=== PATIENT | female | born 1955 | race Native Hawaiian/Other Pacific Islander ===

== ENCOUNTER 2024-07-13 14:42 | Outpatient (AMB) | payer OTHER, SELFPAY ==
--- NOTE | 2024-07-13 15:04 | MHC.OFFVIS ---
Vital Signs 07/13/24 15:05 Height 5 ft 2.5 in Weight 200 lb 9.93 oz BMI 36.1 BP 132/80 Blood Pressure Location Rt brachial Position Sitting Pulse 88 Pulse Source Pulse Oximeter Pulse Oximetry (%) 95 Oxygen Delivery Method Room Air Intake Visit Reasons: asthma Allergies Latex, Natural Rubber [LATEX, NATURAL RUBBER] Allergy (Unknown, Unverified 07/13/24 15:08) RASH sulfamethoxazole [From BACTRIM] Allergy (Unknown, Unverified 07/13/24 15:08) RASH trimethoprim [From BACTRIM] Allergy (Unknown, Unverified 07/13/24 15:08) RASH HPI Comments Details: The patient is here for pulmonary evaluation. The patient is a 69 year woman with known history of asthma. She has had asthma and she has a child in his symptoms improve. Now for the last few years been having worsening respiratory symptoms such as tightness. She has had admissions at [facility] for asthma exacerbations. Although has not had any admissions for the last 3 years. The patient has been taking Symbicort. She feels she has does significant chest tightness and shortness of breath. She uses a rescue inhaler on a regular basis. She has had allergy testing in the past. And she was also diagnosed with nasal polyps. She was not offered allergy shots and she did go to ENT doctor. She did have surgery for her nose. The last time she was evaluated they did not see any nasal polyps which is reassuring. The patient also suffers from significant reflux disease. Sometimes she does wake up with significant heartburn and coughing because of reflux. She does take Protonix. Although she continues to be symptomatic. The patient does not use aspirin at this time. She does have chest tightness on examination wheezing. Will go ahead and optimize respiratory therapy. Will go ahead and request PFTs and a chest x-ray and have her come in. She is already on lot of medications. So therefore we have to be careful not to add to her polypharmacy. [facility] Medical History (Updated 07/13/24 @ 23:12 by Albino Wolff MD) Nasal polyps Asthma Social History (Updated 07/13/24 @ 15:09 by Gabby Ramos CMA) Patient Tobacco Use Status: Former Tobacco user Review of Systems Const Reports daytime sleepiness and Reports snoring Eyes Reports no additional complaints ENT Reports nasal congestion and Reports nasal discharge Card Denies chest pain Resp Reports cough, Reports snoring and Reports wheezing GI Reports dyspepsia and Reports heartburn Musc Reports no additional complaints Skin/Breast Denies rash Cosmo/Lymph Reports no additional complaints Aller/Immun Reports wheezing Physical Exam Vital Signs: Last Vital Signs Pulse 88 07/13/24 15:05 BP 132/80 07/13/24 15:05 Pulse Ox 95 07/13/24 15:05 Oxygen Delivery Method Room Air 07/13/24 15:05 BMI result Body Mass Index 36.1 Const General: comfortable HEENT Head: Yes normocephalic Neck Neck: Yes supple Chest Chest palpation & inspection: normal inspection of the chest Resp Effort & Inspection: normal respiratory effort Auscultation: wheezes and diminished lung sounds Cardio Heart sounds: S1 normal heart sound present and S2 normal heart sound present GI Palpation (GI): Soft to palpation Skin General skin exam: no rashes or lesions noted Extrem General: No clubbing, No cyanosis and Yes edema Assessment & Plan Assessment & Plan (1) Asthma: Code(s): J45.909 - Unspecified asthma, uncomplicated Category: Medical Qualifiers: Asthma severity: moderate Asthma persistence: persistent Asthma complication type: uncomplicated Qualified Code(s): J45.40 - Moderate persistent asthma, uncomplicated (2) ASTRID (obstructive sleep apnea): Code(s): G47.33 - Obstructive sleep apnea (adult) (pediatric) Category: Medical (3) Nasal polyps: Code(s): J33.9 - Nasal polyp, unspecified Category: Medical Plan continue Symbicort start Spiriva JAY as needed reflux diet PPI start H2B sleep elevated CXR PFTs consider PSG F/U 2 months Orders: Orders XR chest 2V Today J45.909 - Unspecified asthma, uncomplicated PFT pulmonary function test Today J45.909 - Unspecified asthma, uncomplicated Medications: New tiotropium bromide 2.5 mcg/actuation (Spiriva Respimat) 2 puffs inhalation DAILY 1 ea 11RF 30 days famotidine (Pepcid) 40 mg PO BEDTIME 30 tabs 4RF Coding Level of Care Code New Pt Level 4 (79000) Diagnoses Moderate persistent asthma without complication J45.40 Asthma severity: moderate Asthma persistence: persistent Asthma complication type: uncomplicated ASTRID (obstructive sleep apnea) G47.33 Nasal polyps J33.9 Time Spent (min) 40
[2024-07-13 15:05] VITALS: BP 132/80; PULSE 88; O2SAT 95; BMI 36.1
--- OUTSIDE RECORDS SUMMARY | 2024-07-13 16:53 | XMS_ITS ---
Author Organization [facility] Address [address] [place] [address] Care Team Providers Care District Director Name Role Phone RICCARDO PHILLIPS Unavailable [phone] Encounters Encounter Location Date Provider Diagnosis [facility] [address] [place] [address] 02/06/2023 RICCARDO PHILLIPS PLAN OF TREATMENT No Information Progress Notes * Katherine OGDENDOB:1955 (67 yo F)Acc No.[id number]:02/06/2023 Patient:??Katherine Ogden :1955?Age:67 Y?Sex:Fe male Address:[address] [place] [address] [place] [id number] * true * Date:??
--- OUTSIDE RECORDS SUMMARY | 2024-07-13 16:53 | XMS_ITS ---
Author Organization [facility] Address [address] [place] [address] Care Team Providers [employer] It Business Systems Analyst Name Role Phone RICCARDO PHILLIPS Unavailable [phone] Encounters Encounter Location Date Provider Diagnosis [address] [facility] [address] [place] [address] 02/07/2023 RICCARDO PHILLIPS Overweight E66.3 and BMI 29.0-29.9,adult Z68.29 ASSESSMENTS Encounter Date Diagnosis Assessment Notes Treatment Notes Treatment Clinical Notes Section Notes 02/07/2023 Overweight (ICD-10 - E66.3) Total time spent today was 30 minutes of which greater than 50% was spent on coordinating and counseling Patient is happy with the ozempic 2 mg. She has not had any side effects with medication. She would like to continue on this dose until she reaches her goal weigh of 165-170 pounds. We are a board certified obesity and weight management practice Patient has trialed behavioral modification, dietary restrictions and exercise for a minimum of 3 months Patient counseled regarding effects of GLP/GIP-1 agonists, and other FDA approved wgt loss meds with regards to a multifactorial approach of weight loss as mentioned above and not solely appetite suppression. We have discussed the mechanism of GLP-1's/GIP I think this would be fantastic option for her given her metabolic workup and body composition We have discussed the risks and benefits and side effects including/and not limited to Sarcopenia, intestinal obstruction, constipation, nausea, lethargy, headache There is no history of medullary thyroid cancer or multiple endocrine neoplasia There is also no history of cardiovascular disease, hypertension, palpitations, or arrhythmias In the setting of potential stimulant/amphetam ine use such as phentermine Patient has been found to be obese with a BMI of (). Patient has class () obesity. Patient was reassured and welcomed to the practice. We discussed that we stress a hollistic medical approach with emphasis on lifestyle modification. Patient was informed that a healthy lifestyle with exercise and good eating habits can help reduce his risk of medical complications. He is explained that obesity increases his risk of diabetes, cardiovascular disease, or organ damage. We spent a lot of time discussing the relationship between food, exercise, sleep, mental health and obesity. Patient was counseled on the importance EATING local, organic food when possible. Patient was educated on clean 15 and dirty dozen. I provided information about reading books called The Food Rules by Rafi Rabago and Eat Fat Get Lean by Dr Eric Cain. Self education is important in the journey for weight management. Patient was offered diagnostic testing. We want to measure visceral adiposity, advanced body composition, adverse lipids, fatty acid balance, risk for heart disease and atherosclerosis, markers of inflammation and genetic susceptibility. Patient was counseled on weight management and was advised to lose weight using A. Meal Replacement Products Patient was educated on the replacement products called optifast. This is a good way of taking fixed amount of calories. It has been shown in studies to be ineffective weight management tool. This however has to be coupled with lifestyle intervention as well as laboratory data and EKG monitoring. It is impossible to know how a person will tolerate complete meal replacement. The side effects of meal replacement and weight loss could include syncopal attacks, dizziness, gallstones, potential cholecystectomy, possible heart attack and even . The benefits of meal replacement would be potential weight loss but no guarantees can be made. Meal replacement products are not covered by insurance. Once the patient has bought these products we cannot return them B. Lifestyle management which includes several strategies as below 1. Eat a low carbohydrate good fat good protein diet. Eliminate refined carbohydrates from the diet. Continue blood sugar and sugared beverages. Eat local organic when possible. Cook your own meals. Read food labels. None about healthy snacks. Portion control and food with low glycemic index 2. Exercise regularly. Try to get at least 6000 steps a day. Use a predominant to track activity level. Consider using apps like [employer], Pinchdpal, lose it, stick as needed for self-monitoring and weight management. Consider group exercises. Consider hiring a household personal assistant. Regular exercise is carrasco to sustainable health and prevents as a buffer against weight regain 3. Sleep is most important for healing. Tried to sleep at least 8 hours a night. A good quality sleep needs a sleep ritual with ideal room temperature of around 68. It might help to take a shower and have no electronics in the room and sleep in a very dark room without artificial light. Start her sleep routine and get up early in the morning and go to bed on time 4. Make a social connection. Surround yourself with positive people with positive energy. Connect with friends and family. 5. Get into the habit of meditating and mindfulness while doing everything. 6. Go outside and connect with nature. C. Prescription medications Patient was educated on the use of prescription medications for medical weight loss. This is a growing list and includes phentermine, Topamax,Qsymia, contrave, belviq and saxenda. All prescription medications could have side effects including but not limited to kidney stones, seizure disorder cardiac arrhythmias heart attack pancreatitis etc. etc.. Patient was encouraged to read the prescription insert and have coaching with their pharmacist and make an informed decision about taking medication and know that these medications are being prescribed with good intentions and we do not know how a patient would react to her medication. Sudden medications are FDA approved for weight loss and there is also off label use depending on patient's inability to afford medications in an attempt to lose weight D. Behavioral counseling was done to establish a relationship between food and an mood. Patient was provided information about local counseling and psychiatry and Dr Uribe at [facility]. We would like to cover regular topics and build on low glycemic eating exercise mindful eating, using yoga and meditation along with deep breathing and connecting with friends and family. E. MASS PAT reviewed, Patient's current medications were reviewed and opinion was given on medication that can cause weight gain and can be substituted F. Patient was assessed for risk with obesity including and not limiting to atherosclerosis heart disease stroke kidney disease, restrictive lung disease, irritable bowel syndrome and overall mortality. Risk of developing prediabetes diabetes and metabolic syndrome was discussed G. Therapeutic plan: We have decided to make therapeutic plan which would include choosing wisely on calories restricting portion getting active, tracking weight, getting good quality sleep and working on time management H. Patient will follow up in (4) weeks for weight management Of note, some information is being carried forward from prior records for informational purposes only and is being cited so that efficiency, safety and quality of the patient's care is not compromised This note was prepared using voice recognition software and direct typing Please excuse inadvertent product development actuary or typing errors, or uncorrected word substitutions Although every attempt has been made by the provider to proofread this document, occasional misspellings and typographical errors may still be present Due to the previous pandemic, and the use of personal protective equipment (PPE) This may decrease voice recognition accuracy Inadvertent product development actuary errors may occur 02/07/2023 BMI 29.0-29.9,adul t (ICD-10 - Z68.29) Total time spent today was 30 minutes of which greater than 50% was spent on coordinating and counseling Patient is happy with the ozempic 2 mg. She has not had any side effects with medication. She would like to continue on this dose until she reaches her goal weigh of 165-170 pounds. We are a board certified obesity and weight management practice Patient has trialed behavioral modification, dietary restrictions and exercise for a minimum of 3 months Patient counseled regarding effects of GLP/GIP-1 agonists, and other FDA approved wgt loss meds with regards to a multifactorial approach of weight loss as mentioned above and not solely appetite suppression. We have discussed the mechanism of GLP-1's/GIP I think this would be fantastic option for her given her metabolic workup and body composition We have discussed the risks and benefits and side effects including/and not limited to Sarcopenia, intestinal obstruction, constipation, nausea, lethargy, headache There is no history of medullary thyroid cancer or multiple endocrine neoplasia There is also no history of cardiovascular disease, hypertension, palpitations, or arrhythmias In the setting of potential stimulant/amphetam ine use such as phentermine Patient has been found to be obese with a BMI of (). Patient has class () obesity. Patient was reassured and welcomed to the practice. We discussed that we stress a hollistic medical approach with emphasis on lifestyle modification. Patient was informed that a healthy lifestyle with exercise and good eating habits can help reduce his risk of medical complications. He is explained that obesity increases his risk of diabetes, cardiovascular disease, or organ damage. We spent a lot of time discussing the relationship between food, exercise, sleep, mental health and obesity. Patient was counseled on the importance EATING local, organic food when possible. Patient was educated on clean 15 and dirty dozen. I provided information about reading books called The Food Rules by Rafi Rabago and Eat Fat Get Lean by Dr Eric Cain. Self education is important in the journey for weight management. Patient was offered diagnostic testing. We want to measure visceral adiposity, advanced body composition, adverse lipids, fatty acid balance, risk for heart disease and atherosclerosis, markers of inflammation and genetic susceptibility. Patient was counseled on weight management and was advised to lose weight using A. Meal Replacement Products Patient was educated on the replacement products called optifast. This is a good way of taking fixed amount of calories. It has been shown in studies to be ineffective weight management tool. This however has to be coupled with lifestyle intervention as well as laboratory data and EKG monitoring. It is impossible to know how a person will tolerate complete meal replacement. The side effects of meal replacement and weight loss could include syncopal attacks, dizziness, gallstones, potential cholecystectomy, possible heart attack and even . The benefits of meal replacement would be potential weight loss but no guarantees can be made. Meal replacement products are not covered by insurance. Once the patient has bought these products we cannot return them B. Lifestyle management which includes several strategies as below 1. Eat a low carbohydrate good fat good protein diet. Eliminate refined carbohydrates from the diet. Continue blood sugar and sugared beverages. Eat local organic when possible. Cook your own meals. Read food labels. None about healthy snacks. Portion control and food with low glycemic index 2. Exercise regularly. Try to get at least 6000 steps a day. Use a predominant to track activity level. Consider using apps like [employer], Pinchdpal, lose it, stick as needed for self-monitoring and weight management. Consider group exercises. Consider hiring a household personal assistant. Regular exercise is carrasco to sustainable health and prevents as a buffer against weight regain 3. Sleep is most important for healing. Tried to sleep at least 8 hours a night. A good quality sleep needs a sleep ritual with ideal room temperature of around 68. It might help to take a shower and have no electronics in the room and sleep in a very dark room without artificial light. Start her sleep routine and get up early in the morning and go to bed on time 4. Make a social connection. Surround yourself with positive people with positive energy. Connect with friends and family. 5. Get into the habit of meditating and mindfulness while doing everything. 6. Go outside and connect with nature. C. Prescription medications Patient was educated on the use of prescription medications for medical weight loss. This is a growing list and includes phentermine, Topamax,Qsymia, contrave, belviq and saxenda. All prescription medications could have side effects including but not limited to kidney stones, seizure disorder cardiac arrhythmias heart attack pancreatitis etc. etc.. Patient was encouraged to read the prescription insert and have coaching with their pharmacist and make an informed decision about taking medication and know that these medications are being prescribed with good intentions and we do not know how a patient would react to her medication. Sudden medications are FDA approved for weight loss and there is also off label use depending on patient's inability to afford medications in an attempt to lose weight D. Behavioral counseling was done to establish a relationship between food and an mood. Patient was provided information about local counseling and psychiatry and Dr Uribe at [facility]. We would like to cover regular topics and build on low glycemic eating exercise mindful eating, using yoga and meditation along with deep breathing and connecting with friends and family. E. MASS PAT reviewed, Patient's current medications were reviewed and opinion was given on medication that can cause weight gain and can be substituted F. Patient was assessed for risk with obesity including and not limiting to atherosclerosis heart disease stroke kidney disease, restrictive lung disease, irritable bowel syndrome and overall mortality. Risk of developing prediabetes diabetes and metabolic syndrome was discussed G. Therapeutic plan: We have decided to make therapeutic plan which would include choosing wisely on calories restricting portion getting active, tracking weight, getting good quality sleep and working on time management H. Patient will follow up in (4) weeks for weight management Of note, some information is being carried forward from prior records for informational purposes only and is being cited so that efficiency, safety and quality of the patient's care is not compromised This note was prepared using voice recognition software and direct typing Please excuse inadvertent product development actuary or typing errors, or uncorrected word substitutions Although every attempt has been made by the provider to proofread this document, occasional misspellings and typographical errors may still be present Due to the previous pandemic, and the use of personal protective equipment (PPE) This may decrease voice recognition accuracy Inadvertent product development actuary errors may occur PLAN OF TREATMENT No Information Progress Notes * Andrea OGDEN:1955 (69 yo F)Acc No.[id number]:02/07/2023 Patient:??Katherine OGDEN Provider:??RICCARDO PHILLIPS NP :[id number]?Age:67 Y?Sex:Fe male Date:02/07/2023 Address:[address] [place] [address] Subjective: * Chief Complaints: * ? * HPI: ?Constitutional:? Patient is here today for a weight management f/u visit ?Patient seen and examined. ? Full past medical history, social history, family history, ?allergies and current medications were reviewed and updated. ?Body composition analysis reviewed today, as expected increased BMI, ?visceral adiposity, fat mass index, waist cirumference ?Good skeletal mass composition, Good water composition ?Caloric energy expenditure discussed ?Patient is interested in increasing her dose to 2mg. ?injection day: ?she is no longer having acid reflux symptoms. happy with her weight loss so far ?and no longer wants bariatric surgery. ?Is having left shoulder surgery in 1 month, 10/19, [facility] ? pt reports walking dog 4 times a day. ?has been working on diet but still reporting snacking. ?02/07/2023: weight ?12/27/2022: weight 162 pounds, BMI 28 ?11/15/2022, weight 166 pounds, BMI 29 ?10/04/2022: Weight 171lbs, BMI 30, (-1lbs) ?08/16/2022: Weight 172, BMI 30 (-8lbs) ?07/05/2022: Weight 180lbs, BMI 32 (-3lbs) ?06/05/2022: Weight 183lbs, unchanged ?05/02/2022: Weight 185 lbs, BMI 32: ?Patient referred to us from bariatric surgeon Shawn ?Highest weight: 198 lbs ?Lowest weight: 150-160 lbs ?Goal weight: 165-170 lbs ?ASTRID screening, refused. ?Metabolic workup: ?Thyroid, does not recall ?Diabetes, does not recall ?Has not had an echocardiogram recently. ?does give herself monthly injections for her psoriasis ?Diet: not tracking calories or portion controlling ?Exercise: Currently not tracking steps daily. ?Non-smoker. ?ETOH use:. * ROS:?All Other Systems:?Review of Systems (ROS)??All others negative except those mentioned in HPI.? * Medical History:?? Objective: * Examination: ?General Examination: ?General: Well appearing, well nourished, age appropriate in no acute distress. Speaking in full, clear sentences. ?SKIN: Warm, dry intact. No rashes/lesions. Cap refill < 3 seconds ?HEENT: Normocephalic atraumatic. EOM intact. No nystagmus noted. PERRLA. No maxillary sinus tenderness. ?NECK: Supple without lymphadenopathy ?LUNGS: Clear to auscultation bilaterally, no wheezes, rales or rhonchi ?CARDIAC: Regular rate and rhythm, no murmurs, rubs or gallops. ?Abdomen: Soft, nontender, nondistended. No tenderness if all 4 quadrants. Normoactive bowel sounds. No masses palpable. ?Extremities: Warm and well perfused. No edema noted. ?MSK: Ms Access Database Developer strength 5/5. No paraspinous muscle tenderness noted down the spine. No step off deformities. Bilateral lower extremitoes extension 5/5. ?Neuro: CN II-XI grossly intact. Speaking in full sentences. Hearing intact. Assessment: * Assessment: 1.??Overweight - E66.3??2.?? BMI 29.0-29.9,adult - Z68.29?? Total time spent today was 3 0 minutes of which greater than 50% was spent on coordinating and counseling Patient is happy with the ozempic 2 mg. She has not had any side effects with medication. She would like to continue on this dose until she reaches her goal weigh of 165- 170 pounds. We are a board certified obesity and weight management practice Patient has trialed behavioral modification, dietary restrictions and exercise for a minimum of 3 months Patient counseled regarding effects of GLP/GIP-1 agonists, and other FDA approved wgt loss meds with regards to a multifactorial approach of weight loss as mentioned above and not solely appetite suppression. We have discussed the mechanism of GLP-1's/GIP I think this would be fantastic option for her given her metabolic workup and body composition We have discussed the risks and benefits and side effects including/and not limited to Sarcopenia, intestinal obstruction, constipation, nausea, lethargy, headache There is no history of medullary thyroid cancer or multiple endocrine neoplasia There is also no history of cardiovascular disease, hypertension, palpitations, or arrhythmias In the setting of potential stimulant/amphetamine use such as phentermine Patient has been found to be obese with a BMI of (). Patient has class () obesity. Patient was reassured and welcomed to the practice. We discussed that we stress a hollistic medical approach with emphasis on lifestyle modification. Patient was informed that a healthy lifestyle with exercise and good eating habits can help reduce his risk of medical complications. He is explained that obesity increases his risk of diabetes, cardiovascular disease, or organ damage. We spent a lot of time discussing the relationship between food, exercise, sleep, mental health and obesity. Patient was counseled on the importance EATING local, organic food when possible. Patient was educated on clean 15 and dirty dozen. I provided information about reading books called The Food Rules by Rafi Rabago and Eat Fat Get Lean by Dr Eric Cain. Self education is important in the journey for weight management. Patient was offered diagnostic testing. We want to measure visceral adiposity, advanced body composition, adverse lipids, fatty acid balance, risk for heart disease and atherosclerosis, markers of inflammation and genetic susceptibility. Patient was counseled on weight management and was advised to lose weight using A. Meal Replacement Products Patient was educated on the replacement products called optifast. This is a good way of taking fixed amount of calories. It has been shown in studies to be ineffective weight management tool. This however has to be coupled with lifestyle intervention as well as laboratory data and EKG monitoring. It is impossible to know how a person will tolerate complete meal replacement. The side effects of meal replacement and weight loss could include syncopal attacks, dizziness, gallstones, potential cholecystectomy, possible heart attack and even . The benefits of meal replacement would be potential weight loss but no guarantees can be made. Meal replacement products are not covered by insurance. Once the patient has bought these products we cannot return them B. Lifestyle management which includes several strategies as below 1. Eat a low carbohydrate good fat good protein diet. Eliminate refined carbohydrates from the diet. Continue blood sugar and sugared beverages. Eat local organic when possible. Cook your own meals. Read food labels. None about healthy snacks. Portion control and food with low glycemic index 2. Exercise regularly. Try to get at least 6000 steps a day. Use a predominant to track activity level. Consider using apps like [employer], [employer], lose it, stick as needed for self-monitoring and weight management. Consider group exercises. Consider hiring a household personal assistant. Regular exercise is carrasco to sustainable health and prevents as a buffer against weight regain 3. Sleep is most important for healing. Tried to sleep at least 8 hours a night. A good quality sleep needs a sleep ritual with ideal room temperature of around 68. It might help to take a shower and have no electronics in the room and sleep in a very dark room without artificial light. Start her sleep routine and get up early in the morning and go to bed on time 4. Make a social connection. Surround yourself with positive people with positive energy. Connect with friends and family. 5. Get into the habit of meditating and mindfulness while doing everything. 6. Go outside and connect with nature. C. Prescription medications Patient was educated on the use of prescription medications for medical weight loss. This is a growing list and includes phentermine, Topamax,Qsymia, contrave, belviq and saxenda. All prescription medications could have side effects including but not limited to kidney stones, seizure disorder cardiac arrhythmias heart attack pancreatitis etc. etc.. Patient was encouraged to read the prescription insert and have coaching with their pharmacist and make an informed decision about taking medication and know that these medications are being prescribed with good intentions and we do not know how a patient would react to her medication. Sudden medications are FDA approved for weight loss and there is also off label use depending on patient's inability to afford medications in an attempt to lose weight D. Behavioral counseling was done to establish a relationship between food and an mood. Patient was provided information about local counseling and psychiatry and Dr Uribe at [facility]. We would like to cover regular topics and build on low glycemic eating exercise mindful eating, using yoga and meditation along with deep breathing and connecting with friends and family. E. MASS PAT reviewed, Patient's current medications were reviewed and opinion was given on medication that can cause weight gain and can be substituted F. Patient was assessed for risk with obesity including and not limiting to atherosclerosis heart disease stroke kidney disease, restrictive lung disease, irritable bowel syndrome and overall mortality. Risk of developing prediabetes diabetes and metabolic syndrome was discussed G. Therapeutic plan: We have decided to make therapeutic plan which would include choosing wisely on calories restricting portion getting active, tracking weight, getting good quality sleep and working on time management H. Patient will follow up in (4) weeks for weight management Of note, some information is being carried forward from prior records for informational purposes only and is being cited so that efficiency, safety and quality of the patient's care is not compromised This note was prepared using voice recognition software and direct typing Please excuse inadvertent product development actuary or typing errors, or uncorrected word substitutions Although every attempt has been made by the provider to proofread this document, occasional misspellings and typographical errors may still be present Due to the previous pandemic, and the use of personal protective equipment (PPE) This may decrease voice recognition accuracy Inadvertent product development actuary errors may occur. Plan: * Treatment: * Images: Billing Information: * Visit Code:?? * Procedure Codes:?? * Sign off status: Pending * Provider:??RICCARDO PHILLIPS NP Date:??09/2022 History and Physical Notes * HPI (History of Present Illness) Category Sub-Category Detail Notes Category Not es Constitutional Patient is here today for a weight management f/u visit Patient seen and examined. Full past medical history, social history, family history, allergies and current medications were reviewed and updated. Body composition analysis reviewed today, as expected increased BMI, visceral adiposity, fat mass index, waist cirumference Good skeletal mass composition, Good water composition Caloric energy expenditure discussed Patient is interested in increasing her dose to 2mg. injection day: she is no longer having acid reflux symptoms. happy with her weight loss so far and no longer wants bariatric surgery. Is having left shoulder surgery in 1 month, 10/19, Shadi FLORES pt reports walking dog 4 times a day. has been working on diet but still reporting snacking. 02/07/2023: weight 12/27/2022: weight 162 pounds, BMI 28 11/15/2022, weight 166 pounds, BMI 29 10/04/2022: Weight 171lbs, BMI 30, (-1lbs) 08/16/2022: Weight 172, BMI 30 (-8lbs) 07/05/2022: Weight 180lbs, BMI 32 (-3lbs) 06/05/2022: Weight 183lbs, unchanged 05/02/2022: Weight 185 lbs, BMI 32: Patient referred to us from bariatric surgeon Shawn Highest weight: 198 lbs Lowest weight: 150-160 lbs Goal weight: 165-170 lbs ASTRID screening, refused. Metabolic workup: Thyroid, does not recall Diabetes, does not recall Has not had an echocardiogram recently. does give herself monthly injections for her psoriasis Diet: not tracking calories or portion controlling Exercise: Currently not tracking steps daily. Non-smoker. ETOH use: Examination Category Sub-Category Detail Notes Category Not es General Examination General: Well appearing, well nourished, age appropriate in no acute distress. Speaking in full, clear sentences. SKIN: Warm, dry intact. No rashes/lesions. Cap refill < 3 seconds HEENT: Normocephalic atraumatic. EOM intact. No nystagmus noted. PERRLA. No maxillary sinus tenderness. NECK: Supple without lymphadenopathy LUNGS: Clear to auscultation bilaterally, no wheezes, rales or rhonchi CARDIAC: Regular rate and rhythm, no murmurs, rubs or gallops. Abdomen: Soft, nontender, nondistended. No tenderness if all 4 quadrants. Normoactive bowel sounds. No masses palpable. Extremities: Warm and well perfused. No edema noted. MSK: Ms Access Database Developer strength 5/5. No paraspinous muscle tenderness noted down the spine. No step off deformities. Bilateral lower extremitoes extension 5/5. Neuro: CN II-XI grossly intact. Speaking in full sentences. Hearing intact.
--- OUTSIDE RECORDS SUMMARY | 2024-07-13 16:54 | XMS_ITS | Patient Health Record ---
Author Organization [facility] Address [address] [place] [address] Care Team Providers Care Counter Intelligence Technician Name Role Phone RICCARDO PHILLIPS Unavailable [phone] ALLERGIES Allergen (clinical drug ingredient) Drug/Non Drug Allergy documented on EMR Reaction Allergy Type Onset Date Status sulfamethoxazole / trimethoprim Bactrim rash Drug Allergy Active Latex Latex rash Allergy Active REASON FOR REFERRAL No Information MEDICATIONS Medication SIG (Take, Route, Frequency, Duration) Notes Start Date End Date Status Budesonide-Formoterol Fumarate 160-4.5 MCG/ACT INHALE 2 PUFFS BY MOUTH TWICE DAILY. RINSE MOUTH AND THROAT AFTER USE Inhalation for 30 Active Fluocinonide 0.05 % APPLY TO LEGS TWICE A DAY NEEDED FOR FLARES External for 30 Active busPIRone HCl 5 MG TAKE 1 TABLET BY JOSE ROBERTO TH TWICE A DAY FOR ANXIETY Oral for 30 Active Ozempic (2 MG/DOSE) 8 MG/3ML inject 2mg Subcutaneous once a week for 30 days Active aMILoride HCl 5 MG TAKE 1 TABLET BY JOSE ROBERTO TH EVERY DAY Oral for 90 Active NIFEdipine ER 30 MG TAKE 1 TABLET BY JOSE ROBERTO TH EVERY DAY Oral for 90 Active Atorvastatin Calcium 10 MG TAKE 1 TABLET BY MOUTH EVERYDAY AT BEDTIME Oral for 90 Active Pantoprazole Sodium 40 MG TAKE 1 TABLET BY MOUTH EVERY DAY Oral for 90 Active SOCIAL HISTORY Tobacco Use: Social History Observation Description Date Details (start date - stop date) Never Smoker NA - NA Sex Assigned At : Social History Observation Description Sex Assigned At Unknown Tobacco Use/Smoking Question Answer Notes Are you a nonsmoker Alcohol Screen (Audit-C) Question Answer Notes Did you have a drink contain ing alcohol in the past year? Yes How often did you have a dri nk containing alcohol in the past year? Monthly or less (1 point) Points 1 Interpretation Negative PROBLEMS Problem Type ICD Code Onset Dates Problem Status W/U Status Risk SNOMED Code Notes Problem Essential (primary) hypertension (I10) Active confirmed 03234919 Problem Obesity (BMI 30.0-34.9) (E66.9) Active confirmed 221691849611670 Problem Gastroesophageal reflux disease without esophagitis (K21.9) Active confirmed 833883645 Problem Current mild episode of major depressive disorder without prior episode (F32.0) Active confirmed 86041610 Problem BMI 32.0-32.9,adult (Z68.32) Active confirmed 196847176 Problem Screening for diabetes mellitus (Z13.1) Active confirmed Diabetes mellit us screening (832796260) Problem BMI 30.0-30.9,adult (Z68.30) Active confirmed 273953726 Problem Chronic obstructive asthma (J44.9) Active confirmed 78542406717027724 Problem Screening cholesterol level (Z13.220) Active confirmed Cholesterol screening (511213101) PLAN OF TREATMENT Pending Test Test Name Order Date CBC (COMPLETE BLOOD COUNT) 11/15/2022 COMPREHENSIVE METABOLIC PANEL 11/15/2022 LIPID PANEL 11/15/2022 Insurance Providers Payer Name Payer Address Payer Phone Subscriber Number Group Number Insured Name Patient Relationship to Insured Coverage Start Date Coverage End Date [employer] or Options [address] [place] [address] [phone] [id number] Katherine Eckert Self - patient is the insured MEDICAL (GENERAL) HISTORY Medical History History ICD Code hypertension hyperlipidemia asthma Arthritis anxiety depression Surgical History Surgery Date(Month/Year) left knee replacement right shoulder replacement 10/18/22 Hospitalization History Reason Date(Month/Year) asthma
== END 2024-07-13 15:39 | disposition home or self-care (01) ==
PROVIDERS: PCP Internal Medicine; Visit Provider Hospitalist
DX: J45.40 Moderate persistent asthma, uncomplicated (principal); G47.33 Obstructive sleep apnea (adult) (pediatric); J33.9 Nasal polyp, unspecified
CPT/HCPCS: 99204

== ENCOUNTER 2024-08-19 13:36 | Outpatient (REF) | payer OTHER, SELFPAY ==
--- NOTE | 2024-08-19 13:46 | PFT_ITS ---
Indication: Asthma Spirometry [FEV1 to FVC 78%; FEV1 2.21 L; FVC 2.85 L. No significant response to bronchodilators noted.] Lung Volumes [Total capacity 74% predicted; residual volume 42% predicted; expiratory reserve volume 40% predicted] Diffusion Capacity [DLCO 104% predicted] Flow Volume Loops [Narrow consistent with a restrictive pattern] Comparisons [none] Interpretation [No obstructive ventilatory defects. No significant response bronchodilators noted. The patient does have restrictive ventilatory defect consistent with mild restrictive lung disease. He had to consider, conditions. Patient also decreasing the expiratory reserve volume secondary to an elevated BMI that may be playing a role. Diffusing capacity is within normal limits. Clinical correlation warranted. MTDD
--- OUTSIDE RECORDS SUMMARY | 2024-08-19 14:59 | XMS_ITS | Patient Health Record ---
Author Organization [facility] Address [address] [place] [address] Care Team Providers Care Fermentation Manager Name Role Phone RICCARDO PHILLIPS Unavailable [phone] ALLERGIES Allergen (clinical drug ingredient) Drug/Non Drug [...] Problem Essential (primary) hypertension (I10) Active confirmed 15293438 Problem Obesity (BMI 30.0-34.9) (E66.9) Active confirmed 451071512327935 Problem Gastroesophageal reflux disease without esophagitis (K21.9) Active confirmed 919711170 Problem Current mild episode of major depressive disorder without prior episode (F32.0) Active confirmed 44042113 Problem BMI 32.0-32.9,adult (Z68.32) Active confirmed 600255753 Problem Screening for diabetes mellitus (Z13.1) Active confirmed Diabetes mellit us screening (250293261) Problem BMI 30.0-30.9,adult (Z68.30) Active confirmed 634183411 Problem Chronic obstructive asthma (J44.9) Active confirmed 81968233566940310 Problem Screening cholesterol level (Z13.220) Active confirmed Cholesterol screening (030947051) PLAN OF TREATMENT Pending Test Test Name Order Date CBC (COMPLETE BLOOD COUNT) 11/15/2022 COMPREHENSIVE METABOLIC PANEL 11/15/2022 LIPID PANEL 11/15/2022 Insurance Providers Payer Name Payer Address Payer Phone Subscriber Number Group Number Insured Name Patient Relationship to Insured Coverage Start Date Coverage End Date [employer] or Options [address] [place] [address] [id number] Katherine Eckert Self - patient is the insured MEDICAL (GENERAL) HISTORY Medical History History ICD Code hypertension hyperlipidemia asthma Arthritis anxiety depression Surgical History Surgery Date(Month/Year) left knee replacement right shoulder replacement 10/18/22 Hospitalization History Reason Date(Month/Year) asthma
--- OUTSIDE RECORDS SUMMARY | 2024-08-19 14:59 | XMS_ITS | Clinical Summary ---
Author Organization [address] [facility] Address [address] [place] [address] Phone Care Team Providers Care Machine Heel Builder Name Role Phone Mitchell Carrera MD Primary Care Provider [phone] Active Problems Problem Noted Date Diagnosed Date Peroneal tendonitis of right lower extremity 05/2024 Encounters Date Type Department Care Team Description 05/20/2024 1:30 PM EST Treatment [facility] [address] [facility] [address] [place] [address] Thao Dickens PT Peroneal tendonitis of right lower extremity (Primary Dx); Plantar fasciitis of right foot from Last 3 Months Social History Tobacco Use Types Packs/Day Years Used Date Smoking Tobacco: Never Smokeless Tobacco: Never Alcohol Use Standard Drinks/Week Comments Yes 0 (1 standard drink = 0.6 oz pur e alcohol) Comments Unknown Sex and Gender Information Value Date Recorded Sex Assigned at Not on file Legal Sex Female 9:43 AM EST Gender Identity Not on file Sexual Orientation Not on file Obstetrics History Last Filed Vital Signs Vital Sign Reading Time Taken Comments Blood Pressure 131/83 02/05/2022 10:55 AM EDT Pulse 83 02/05/2022 10:55 AM EDT Temperature - - Respiratory Rate - - Oxygen Saturation - - Inhaled Oxygen Concentration - - Weight 80.8 kg (178 lb 1.9 oz) 02/05/2022 10:55 AM EDT Height 160 cm (5' 3 ) 02/05/2022 10:55 AM EDT Body Mass Index 31.55 02/05/2022 10:55 AM EDT Plan of Treatment Upcoming Encounters Date Type Department Care Team (Late st Contact Info) Description 02/23/2025 2:30 PM EDT Office Visit Bariatric Surgery - [place] [address] [facility] [address] [place] [id number] Mónica Mace MD [address] [facility] [address] [place] [address] Health Maintenance Due Date Last Done Comments Breast Cancer Screening 1955 Hepatitis A Vaccines (1 of 2 - Risk 2-dose series) 02/22/1976 Hepatitis B Vaccines (1 of 3 - Risk 3-dose series) 2017 Cholesterol Screening (Lipid Panel) 06/05/2022 Colorectal Cancer Screening: Colonoscopy 06/05/2022 Depression Screening 06/05/2022 Falls Risk Assessment 06/05/2022 Hepatitis C Screening 06/05/2022 Medicare Annual Wellness Visit 06/05/2022 Osteoporosis Screening (Bone Density Screening) 06/05/2022 Social Influencers of Health Screening 06/05/2022 Influenza Vaccine (#1) 2024 , 05/09/2021, 04/16/2019, Additional history exists Hypertension/CHF/CAD Annual BMP Blood Test 05/12/2024 DTaP,Tdap,and Td Vaccines (4 - Td or Tdap) 01/10/2032 01/09/2022, 05/15/2012, 06/25/2007 Zoster Vaccines Completed 07/21/2021, 01/02/2021 Pneumococcal Vaccine: 50+ Years Completed 08/06/2022 COVID-19 Vaccine Completed 04/02/2024, , 12/08/2020, Additional history exists RSV Immunization Patients 60+ Years Old Completed 04/02/2024 HIB Vaccines Aged Out No longer eligi ble based on patient's age to complete this topic HPV Vaccines Aged Out No longer eligi ble based on patient's age to complete this topic IPV Vaccines Aged Out No longer eligi ble based on patient's age to complete this topic MMR Vaccines Aged Out No longer eligi ble based on patient's age to complete this topic Meningococcal ACWY Vaccine Aged Out N o longer eligible based on patient's age to complete this topic RSV Immunization Patients Under 20 months Aged Out No longer eligible based on patient's age to complete this topic Varicella Vaccines Aged Out No longer eligible based on patient's age to complete this topic Insurance MEDICAID - [place] [employer] MEDICARE Member Subscriber Plan / Payer (Ef fective 2022-Present) Name:Katherine Eckert Relation to Subscriber:Self Name:Katherine Eckert Payer ID:[id number] Group ID:[id number] Type:Not on file Address: [address] [place] [address] Care Teams Machine Heel Builder Relationship Specialty Start Date End Date Mitchell Carrera MD [address] [place] [address] PCP - General Internal Medicine 03/17/21
== END 2024-08-19 13:37 | disposition home or self-care (01) ==
LOC: HO.RESP 13:36
PROVIDERS: PCP Internal Medicine; Visit Provider Nurse Practitioner Family
DX: J45.909 Unspecified asthma, uncomplicated (principal)
CPT/HCPCS: 94010; 94640; 94727; 94729

== ENCOUNTER → 2024-08-19 13:46 | Outpatient (BNV) | payer OTHER, SELFPAY | PROVIDERS: PCP Internal Medicine; Visit Provider Hospitalist | DX: J45.909 Unspecified asthma, uncomplicated (principal) | CPT/HCPCS: 94060; 94727; 94729 ==

== ENCOUNTER 2024-09-07 14:13 | Outpatient (AMB) | payer OTHER, SELFPAY ==
[2024-09-07 14:25] VITALS: BP 132/84; PULSE 83; O2SAT 97; BMI 35.7
--- NOTE | 2024-09-07 14:25 | A.OFFVIS_ITS ---
Vital Signs 09/07/24 14:25 Height 5 ft 2.5 in Weight 198 lb 6.656 oz BMI 35.7 BP 132/84 Blood Pressure Location Rt brachial Position Sitting Pulse 83 Pulse Source Pulse Oximeter Pulse Oximetry (%) 97 Oxygen Delivery Method Room Air Intake Visit Reasons: Asthma Allergies Latex, Natural Rubber [LATEX, NATURAL RUBBER] Allergy (Unknown, Unverified 09/07/24 14:28) RASH sulfamethoxazole [From BACTRIM] Allergy (Unknown, Unverified 09/07/24 14:28) RASH trimethoprim [From BACTRIM] Allergy (Unknown, Unverified 09/07/24 14:28) RASH HPI Comments Details: The patient is a 69 year woman with known history of asthma. She has had asthma and she has a child in his symptoms improve. Now for the last few years been having worsening respiratory symptoms such as tightness. She has had admissions at [facility] for asthma exacerbations. Although has not had any admissions for the last 3 years. The patient has been taking Symbicort. She feels she has does significant chest tightness and shortness of breath. She uses a rescue inhaler on a regular basis. She has had allergy testing in the past. And she was also diagnosed with nasal polyps. She was not offered allergy shots and she did go to ENT doctor. She did have surgery for her nose. The last time she was evaluated they did not see any nasal polyps which is reassuring. The patient also suffers from significant reflux disease. Sometimes she does wake up with significant heartburn and coughing because of reflux. She does take Protonix. Although she continues to be symptomatic. The patient does not use aspirin at this time. She does have chest tightness on examination wheezing. Will go ahead and optimize respiratory therapy. Will go ahead and request PFTs and a chest x-ray and have her come in. She is already on lot of medications. So therefore we have to be careful not to add to her polypharmacy. 09/07/2024 the patient is here for a pulmonary follow-up visit. Overall doing fairly well. Still having episodes of cough. And also feel like chest tightness middle the chest. She did start the Spiriva although she does not use it regularly and she is using the Symbicort. The patient continues to have significant reflux disease. Sometimes she does wake up with significant heartburn and coughing. Explained to the patient this is likely contributing to her cough and to a component of likely tracheomalacia. Therefore again we talked about the reflux diet. She is responding to the Pepcid at night along with the Protonix in the morning. Because of her ongoing symptoms will go ahead and request a barium swallow in addition to that the patient did have pulmonary function studies which we personally reviewed. No evidence of any obstruction although she did have a mild restriction. Diffusing capacity is normal. Will go ahead and request a chest x-ray to address the restriction. If the chest x- ray is nondiagnostic if the patient continues to be symptomatic a CT scan of chest may be warranted in the near future. She is scheduled to undergo a knee replacement sometime in March. Will plan to see her prior to that just to follow-up with all the results. [facility] Medical History (Updated 09/07/24 @ 21:22 by Albino Wolff MD) Chronic restrictive lung disease Nasal polyps Asthma Social History Patient Tobacco Use Status: Former Tobacco user Review of Systems Const Reports daytime sleepiness and Reports snoring Eyes Reports no additional complaints ENT Reports nasal congestion and Reports nasal discharge Card Denies chest pain Resp Reports cough, Reports snoring and Reports wheezing GI Reports dyspepsia and Reports heartburn Musc Reports no additional complaints Skin/Breast Denies rash Cosmo/Lymph Reports no additional complaints Aller/Immun Reports wheezing Physical Exam Vital Signs: Last Vital Signs Pulse 83 09/07/24 14:25 BP 132/84 09/07/24 14:25 Pulse Ox 97 09/07/24 14:25 Oxygen Delivery Method Room Air 09/07/24 14:25 BMI result Body Mass Index 35.7 Const General: comfortable HEENT Head: Yes normocephalic Neck Neck: Yes supple Chest Chest palpation & inspection: normal inspection of the chest Resp Effort & Inspection: normal respiratory effort Auscultation: wheezes and diminished lung sounds Cardio Heart sounds: S1 normal heart sound present and S2 normal heart sound present GI Palpation (GI): Soft to palpation Skin General skin exam: no rashes or lesions noted Extrem General: No clubbing, No cyanosis and Yes edema Assessment & Plan Assessment & Plan (1) Asthma: Comment: ? component of TBM Code(s): J45.909 - Unspecified asthma, uncomplicated Category: Medical Qualifiers: Asthma complication type: uncomplicated Asthma persistence: persistent Asthma severity: moderate Qualified Code(s): J45.40 - Moderate persistent asthma, uncomplicated (2) ASTRID (obstructive sleep apnea): Code(s): G47.33 - Obstructive sleep apnea (adult) (pediatric) Category: Medical (3) Nasal polyps: Code(s): J33.9 - Nasal polyp, unspecified Category: Medical (4) Chronic restrictive lung disease: Code(s): J98.4 - Other disorders of lung Category: Medical Plan continue Symbicort continue Spiriva JAY as needed reflux diet PPI [id number] sleep elevated CXR, consider CT chest home PSG F/U 3 months Orders: Orders [place] barium swallow Today K21.9 - Gastro-esophageal reflux disease without esophagitis Pulmonary Rehab Today G47.33 - Obstructive sleep apnea (adult) (pediatric) Coding Level of Care Code Est Pt Level 4 (46965) Complex EM visit Add On G2211 Diagnoses Moderate persistent asthma without complication J45.40 Asthma complication type: uncomplicated Asthma persistence: persistent Asthma severity: moderate ASTRID (obstructive sleep apnea) G47.33 Nasal polyps J33.9 Chronic restrictive lung disease J98.4 Time Spent (min) 17
--- OUTSIDE RECORDS SUMMARY | 2024-09-07 17:02 | XMS_ITS | Clinical Summary ---
Author Organization [address] [facility] Address [address] [place] [address] Phone Care Team Providers Care Hammer Adjuster Name Role Phone Mitchell Carrera MD Primary Care Provider [phone] Allergies Active Allergy Reactions Criticality Noted Date Comments Latex 07/11/2021 Other 07/11/2021 Bactrim [Na Gnwkrhne-xvktvzjpcksdajnn-acwpjiswrfk m] Medications busPIRone (BUSPAR) 5 mg tablet Take 5 mg by mouth 2 Times Daily. 01/16/2022 Active calcium carbonate (CALCIUM ORAL) Calcium Carbonate-Vit D-Min (CALCIUM 1200 OR) Take by mouth Active DAILY MULTI-VITAMIN ORAL Multiple Vitamin (Multi-Vitami n Daily) Tab Take by mouth. Active NEBULIZERS MISC by Does not apply route. Active NIFEdipine (ADALAT CC) 30 mg 24 hr tablet Take 30 mg by mouth daily. Active pantoprazole (PROTONIX) 40 mg injection Inject 40 mg into the vein every morning (before breakfast). Active QUEtiapine (SEROquel) 100 mg tablet Take 100 mg by mouth 2 times daily. Active sertraline (ZOLOFT) 100 mg tablet Take 100 mg by mouth daily. Active tolterodine LA (DETROL LA) 4 mg 24 hr capsule Take 4 mg by mouth daily. Active Active Problems Problem Noted Date Diagnosed Date Peroneal tendonitis of right lower extremity 05/2024 Social History Tobacco Use Types Packs/Day Years [...] Upcoming Encounters Date Type Department Care Team ([facility] st Contact Info) Description 02/23/2025 2:30 PM EDT Office Visit Bariatric Surgery - [place] [address] [facility] [address] [place] [address] Mónica Mace MD [address] [facility] [address] [place] [address] Health Maintenance Due Date Last Done Comments [...] patient's age to complete this topic Meningococcal B Vacine Aged Out No lo nger eligible based on patient's age to complete this topic RSV Immunization Patients Under 20 months Aged Out No longer eligible based on patient's age to complete this topic Varicella Vaccines Aged Out No longer eligible based on patient's age to complete this topic [place] [address] [place] [id number] MEDICAID - [place] [employer] MEDICARE Member Subscriber Plan / Payer (Ef fective 2022-Present) Name:Tomeka Katherine Relation to Subscriber:Self Name:Katherine Eckert Payer ID:[id number] Group ID:[id number] Type:Not on file Address: [address] [place] [address] Care Teams Hammer Adjuster Relationship Specialty Start Date End Date Mitchell Carrera MD [address] [place] [address] PCP - General Internal Medicine 03/17/21
--- OUTSIDE RECORDS SUMMARY | 2024-09-07 17:02 | XMS_ITS | Patient Health Record ---
Author Organization [facility] Address [address] [place] [address] Care Team Providers Care Music Assistant Name Role Phone RICCARDO PHILLIPS Unavailable [phone] ALLERGIES Allergen (clinical drug ingredient) Drug/Non Drug [...] Problem Essential (primary) hypertension (I10) Active confirmed 68940396 Problem Obesity (BMI 30.0-34.9) (E66.9) Active confirmed [id number] Problem Gastroesophageal reflux disease without esophagitis (K21.9) Active confirmed 602528422 Problem Current mild episode of major depressive disorder without prior episode (F32.0) Active confirmed 40789856 Problem BMI 32.0-32.9,adult (Z68.32) Active confirmed 508733269 Problem Screening for diabetes mellitus (Z13.1) Active confirmed Diabetes mellit us screening (925033257) Problem BMI 30.0-30.9,adult (Z68.30) Active confirmed 970329100 Problem Chronic obstructive asthma (J44.9) Active confirmed [id number] Problem Screening cholesterol level (Z13.220) Active confirmed Cholesterol screening (497392425) PLAN OF TREATMENT Pending Test Test Name Order Date CBC (COMPLETE BLOOD COUNT) 11/15/2022 COMPREHENSIVE METABOLIC PANEL 11/15/2022 LIPID PANEL 11/15/2022 Insurance Providers Payer Name Payer Address Payer Phone Subscriber Number Group Number Insured Name Patient Relationship to Insured Coverage Start Date Coverage End Date [employer] or Options [address] [place] [id number] Katherine Eckert Self - patient is the insured MEDICAL (GENERAL) HISTORY Medical History History ICD Code hypertension hyperlipidemia asthma Arthritis anxiety depression Surgical History Surgery Date(Month/Year) left knee replacement right shoulder replacement 10/18/22 Hospitalization History Reason Date(Month/Year) asthma
== END 2024-09-07 14:52 | disposition home or self-care (01) ==
PROVIDERS: PCP Internal Medicine; Visit Provider Hospitalist
DX: J45.40 Moderate persistent asthma, uncomplicated (principal); G47.33 Obstructive sleep apnea (adult) (pediatric); J33.9 Nasal polyp, unspecified; J98.4 Other disorders of lung
CPT/HCPCS: 99214; G2211

== ENCOUNTER → 2024-09-07 14:13 | Outpatient (BNVA) | payer OTHER, SELFPAY | PROVIDERS: PCP Internal Medicine; Visit Provider Hospitalist | DX: J45.40 Moderate persistent asthma, uncomplicated (principal); J98.4 Other disorders of lung; J33.9 Nasal polyp, unspecified; G47.33 Obstructive sleep apnea (adult) (pediatric) | CPT/HCPCS: 99212 ==

== ENCOUNTER 2024-12-08 10:00 | Outpatient (RCR) | payer OTHER, SELFPAY | END 2024-12-24 07:43 | disposition home or self-care (01) | LOC: HO.PR 10:00 | PROVIDERS: PCP Internal Medicine; Visit Provider Hospitalist | DX: G47.33 Obstructive sleep apnea (adult) (pediatric) (principal); J45.40 Moderate persistent asthma, uncomplicated | CPT/HCPCS: 94618; 99212; G0237; G0239 ==

== ENCOUNTER 2025-01-11 07:47 | Outpatient (REF) | payer OTHER, SELFPAY ==
--- OUTSIDE RECORDS SUMMARY | 2025-01-07 13:29 | XMS_ITS | Continuity of Care Document ---
Author Organization [facility] ter Address [address] [place] [id number]- Care Team Providers Care Service Desk Analyst Name Role Phone Mitchell Carrera MD Primary Care Physician [place] [facility] [place] 01/[place]25 [facility] [address] [place] [id number] Discharge Disposition: A-D/C Home Attending Physician: Carline Kohler MD Admitting Physician: Carline Kohler MD Referring Physician: Carline Kohler MD Encounter Type: Disch Daystay Allergies, Adverse Reactions, Alerts Substance Criticality Severity Reaction Reaction Severity Status Bactrim rash Active Latex rash Active Immunizations Given and Recorded Vaccine Date Status Refusal Reason RSV vaccine preF3, recombinant 04/02/24 Recorded SARS-CoV-2(COVID-19)mRNA-LNP vac([id number]) 04/02/24 Recorded influenza virus vaccine, inactivated 04/02/23 Destin rded influenza virus vaccine, inactivated 1 05/09/21 Gi jemima influenza virus vaccine, inactivated 2 04/16/19 Gi jemima influenza virus vaccine, inactivated 3 04/07/14 Gi jemima influenza virus vaccine, inactivated 4 05/08/13 Gi jemima influenza virus vaccine, inactivated 5 05/15/12 Gi jemima pneumococcal 20-valent conjugate vaccine 6 08/06/22 Given tetanus-diphtheria toxoids (Td) 7 01/09/22 Given zoster vaccine, inactivated 07/21/21 Recorded zoster vaccine, inactivated 01/02/21 Recorded SARS-CoV-2 (COVID-19) mRNA-1273 vaccine 07/21/21 R ecorded SARS-CoV-2 (COVID-19) mRNA-1273 vaccine 12/08/20 R ecorded SARS-CoV-2 (COVID-19) mRNA-1273 vaccine 11/10/20 R ecorded tetanus/diphtheria/pertussis, acel(Tdap) 05/15/12 Given Tetanus-Diphth Toxoids, Adult (oldterm) 06/25/07 G prieto 1Result Comment: [id number] given w/out incident 2Result Comment: [id number] given w/out incident 3Admin Note: done @ work 4Admin Note: done @ work 5Admin Note: work 6Result Comment: [id number] given w/out incident 7Result Comment: [id number] given w/out incident Medications Adult Pull up briefs (large) Adult Pull up briefs (large), See Instructions, # 90 each, Refills 11, Tot. Refills 11, Maintenance, use TID for urinary incontinence. Dx: R32., 01/05/25 4:13:00 PM EDT, Supply Start Date: 01/05/25 Status: Ordered Quantity: 90.0 Unit: each Repeat number: 12 Adult wipes 48 count per pack Adult wipes 48 count per pack, See Instructions, # 3 each, Refills 11, Tot. Refills 11, Maintenance, use TID for urinary incontinence. Dx: R32., 01/05/25 4:13:00 PM EDT, Supply Start Date: 01/05/25 Status: Ordered Quantity: 3.0 Unit: each Repeat number: 12 alclometasone 0.05% topical ointment APPLY TO FACE/EARS TWICE A DAY NEEDED FOR FLARES Start Date: 08/22/22 Status: Ordered Repeat number: 1 atorvastatin 10 mg oral tablet 1 tablet = 10 mg, By Mouth, Daily at bedtime, # 90 tablet, 4 Refills, Maintenance, 02/06/24 2:05:00 PM EDT, [facility]/pharmacy #[id number], Partial fill upon patient request if the prescription is for a schedule II opioid drug., 158.8, cm, 02/06/24 13:57:00 EDT, Height, 83.2, kg, 02/06/24 13:57:00 EDT, Dry Weight Start Date: 02/06/24 Stop Date: 05/01/25 Status: Ordered Quantity: 90.0 Unit: tablet Repeat number: 5 Indications: Pure hypercholesterolemia, unspecified; budesonide-formoterol 160 mcg-4.5 mcg/inh inhalation aerosol with adapter See Instructions, INHALE 2 PUFFS BY MOUTH 2 TIMES A DAY (MORNING + EVENING). RINSE MOUTH AND THROATAFTER USE, # 10.2 each, Refills 11, Tot. Refills 11, Maintenance, 01/05/25 10:21:00 AM EDT, Instructions Replace Required Details, Route to Pharmacy Electronically, [id number], [id number], 158.8, cm, 01/05/25 10:03:00 EDT, Height, 85.8, kg, 04/14/24 11:06:00 EDT, Dry Weight Start Date: 01/05/25 Status: Ordered Quantity: 10.2 Unit: each Repeat number: 12 Caltrate 600 with D 600 mg-400 intl units oral tablet 1 tablet, By Mouth, Daily, # 30 tablet, 9 Refills, Maintenance, 05/15/12 11:55:37 AM EST, Tablet Start Date: 05/15/12 Stop Date: 03/11/13 Status: Ordered Quantity: 30.0 Unit: tablet Repeat number: 10 Cane Cane, See Instructions, # 1 each, Refills 0, Tot. Refills 0, Maintenance, use daily for ambulation.Dx: M17.12, 07/28/21 10:11:00 AM EST, Supply Start Date: 07/28/21 Status: Ordered Quantity: 1.0 Unit: each Repeat number: 1 chlorthalidone 25 mg oral tablet 25 mg, 1, tablet, By Mouth, Daily, # 30 tablet, Refills 0, Tot. Refills 0, Maintenance, 01/05/25 10:30:00 AM EDT, Route to Pharmacy Electronically, [facility]/pharmacy #[id number], Partial fill upon patient requestif the prescription is for a schedule II opioid drug., 158.8, cm, 01/05/25 10:03:00 EDT, Height, 85.8, kg, 04/14/24 11:06:00 EDT, Dry Weight Start Date: 01/05/25 Stop Date: 02/04/25 Status: Ordered Quantity: 30.0 Unit: tablet Repeat number: 1 famotidine 40 mg oral tablet 1 tablet = 40 mg, By Mouth, Daily at bedtime, 0 Refills, Maintenance, 01/04/25 10:36:00 AM EDT, Partial fill upon patient request if the prescription is for a schedule II opioid drug. Start Date: 01/04/25 Status: Ordered Repeat number: 1 Flonase 50 mcg/inh nasal spray 2 sprays, Nares, Both, Daily, # 16 Gm, 0 Refills, Maintenance, 12/07/13 10:52:36 AM EDT, [place] Start Date: 12/07/13 Stop Date: 01/06/14 Status: Ordered Quantity: 16.0 Unit: g Repeat number: 1 fluticasone 27.5 mcg/inh nasal spray 2 sprays = 55 mcg, Nares, Both, Daily, PRN as needed for allergy symptoms, # 10 Gm, 4 Refills, Maintenance, 01/05/25 10:34:00 AM EDT, [place], [facility]/pharmacy #[id number], Partial fill upon patient request if theprescription is for a schedule II opioid drug., 2 sprays Nares, Both Daily,x30 days,PRN:as needed for allergy symptoms, 158.8, cm, 01/05/25 10:03:00 EDT, Height, 85.8, kg, 04/14/24 11:06:00 EDT, Dry W eight Start Date: 01/05/25 Stop Date: 06/04/25 Status: Ordered Quantity: 10.0 Unit: g Repeat number: 5 Four-wheeled Rollator walker Four-wheeled Rollator walker, See Instructions, # 1 kit, Refills 0, Tot. Refills 0, Maintenance, use for mobility Dx: M17.9, M16, 01/05/25 4:12:00 PM EDT, Supply Start Date: 01/05/25 Status: Ordered Quantity: 1.0 Unit: kit Repeat number: 1 Indications: Bilateral primary osteoarthritis of hip; Unilateral primary osteoarthritis, unspecified knee; multivitamin Vitamin B Complex oral capsule 1 capsule, By Mouth, Daily, # 30 capsule, 0 Refills, Maintenance, 05/15/12 11:56:37 AM EST, Capsule Start Date: 05/15/12 Stop Date: 06/14/12 Status: Ordered Quantity: 30.0 Unit: capsule Repeat number: 1 NIFEdipine (Eqv-Adalat CC) 30 mg oral tablet, extended release 1 tablet, By Mouth, Daily, # 90 tablet, 3 Refills, Maintenance, 02/06/24 2:05:00 PM EDT, [id number], 158.8, cm, 02/06/24 13:57:00 EDT, Height, 83.2, kg, 02/06/24 13:57:00 EDT, Dry Weight Start Date: 02/06/24 Stop Date: 01/31/25 Status: Ordered Quantity: 90.0 Unit: tablet Repeat number: 4 Overnight incontinence pads (maximum absorbency) Overnight incontinence pads (maximum absorbency), See Instructions, # 100 each, Refills 3, Tot. Refills 3, Maintenance, use every night for urinary incontinence. Dx: R32., 01/05/25 4:55:00 PM EDT, Supply Start Date: 01/05/25 Status: Ordered Quantity: 100.0 Unit: each Repeat number: 4 pantoprazole 40 mg oral delayed release tablet 1 tablet, By Mouth, Daily, # 90 tablet, 3 Refills, Maintenance, 02/06/24 2:05:00 PM EDT, 158.8, cm, 02/06/24 13:57:00 EDT, Height, 83.2, kg, 02/06/24 13:57:00 EDT, Dry Weight Start Date: 02/06/24 Stop Date: 01/31/25 Status: Ordered Quantity: 90.0 Unit: tablet Repeat number: 4 PEG-3350 with Electrolytes (Eqv-GoLYTELY) oral powder for reconstitution See Instructions, per GI office, # 4,000 mL, 0 Refills, Maintenance, 07/12/23 1:22:00 PM EST, [id number], Partial fill upon patient request if the prescription is for a schedule II opioid drug., per GI office, 158.8, cm, 05/21/23 10:34:00 EST, Height, 79.6, kg, 05/20/23 12:44:00 EST, Dry Weight Start Date: 07/12/23 Status: Ordered Quantity: 4000.0 Unit: mL Repeat number: 1 SEROquel 100 mg oral tablet 1.5 TABLETS, By Mouth, Daily, # 90 tablet, Refills 0, Maintenance, 02/04/23 10:27:00 AM EDT, Partialfill upon patient request if the prescription is for a schedule II opioid drug. Start Date: 02/04/23 Stop Date: 05/05/23 Status: Ordered Quantity: 90.0 Unit: tablet Repeat number: 1 spironolactone 25 mg oral tablet 25 mg, 1, tablet, By Mouth, Daily, # 90 tablet, Refills 3, Tot. Refills 3, Maintenance, 02/06/24 2:10:00 PM EDT, Route to Pharmacy Electronically, [facility]/pharmacy #[id number], replaces amlodipine, 158.8, cm, 02/06/24 13:57:00 EDT, Height, 83.2, kg, 02/06/24 13:57:00 EDT, Dry Weight Start Date: 02/06/24 Stop Date: 01/31/25 Status: Ordered Quantity: 90.0 Unit: tablet Repeat number: 4 tolterodine 4 mg oral capsule, extended release 1 capsule = 4 mg, By Mouth, Daily, for 90 days, # 90 capsule, 4 Refills, Hard Stop 05/01/25 2:05:00PM EDT, 02/06/24 2:05:00 PM EDT, CR Capsule, [facility]/pharmacy #[id number], Partial fill upon patient request ifthe prescription is for a schedule II opioid drug., 158.8, cm, 02/06/24 13:57:00 EDT, Height, 83.2,kg, 02/06/24 13:57:00 EDT, Dry Weight Start Date: 02/06/24 Stop Date: 05/01/25 Status: Ordered Quantity: 90.0 Unit: capsule Repeat number: 5 traZODone 50 mg oral tablet 50 mg, 1, tablet, By Mouth, Daily at bedtime, # 30 tablet, Refills 0, Maintenance, 02/06/24 2:20:00 PM EDT, Partial fill upon patient request if the prescription is for a schedule II opioid drug. Start Date: 02/06/24 Stop Date: 03/07/24 Status: Ordered Quantity: 30.0 Unit: tablet Repeat number: 1 Tremfya One-Press 100 mg/mL subcutaneous solution EVERY 4 WEEKS, 0 Refills, Maintenance, 04/29/23 1:01:00 PM EDT, Partial fill upon patient request if the prescription is for a schedule II opioid drug. Start Date: 04/29/23 Status: Ordered Repeat number: 1 Tylenol 8 HR Arthritis Pain 650 mg oral tablet, extended release 1 tablet = 650 mg, By Mouth, Every 8 hours, PRN as needed for fever, for 30 days, # 100 tablet, 3 Refills, Acute 05/05/25 10:31:00 AM EDT, 01/05/25 10:31:00 AM EDT, ER Tablet, [facility]/pharmacy #[id number], Partial fill upon patient request if the prescription is for a schedule II opioid drug., 158.8, cm, 01/05/25 10:03:00 EDT, Height, 85.8, kg, 04/14/24 11:06:00 EDT, Dry Weight Start Date: 01/05/25 Stop Date: 05/05/25 Status: Ordered Quantity: 100.0 Unit: tablet Repeat number: 4 venlafaxine 75 mg oral capsule, extended release 75 mg, 1, capsule, By Mouth, Daily, # 30 capsule, Refills 0, Maintenance, 02/04/23 10:27:00 AM EDT, Partial fill upon patient request if the prescription is for a schedule II opioid drug. Start Date: 02/04/23 Status: Ordered Quantity: 30.0 Unit: capsule Repeat number: 1 Ventolin HFA 108 mcg/inh inhalation aerosol with adapter 2 puffs, Inhalation, Every 4 hours, PRN for wheezing, # 8.5 Gm, 3 Refills, Maintenance, 02/06/24 2:06:00 PM EDT, Aerosol, [facility]/pharmacy #[id number], Partial fill upon patient request if the prescription is for a schedule II opioid drug., 158.8, cm, 02/06/24 13:57:00 EDT, Height, 83.2, kg, 02/06/24 13:57:00 EDT, Dry Weight Start Date: 02/06/24 Status: Ordered Quantity: 8.5 Unit: g Repeat number: 4 Indications: Unspecified asthma, uncomplicated; Problem List Condition Confirmation Course Effective Dates Status Health Status Informant Anxiety Confirmed Active Asthma Confirmed Active Degenerative arthritis of cervical spine Confirmed 01/05/15 Active Chronic headache Confirmed Active Chronic Sinusitis Confirmed Active Constipation Confirmed Active Ethmoidectomy Confirmed 11/17/02 Active Family history of alcoholism Confirmed Active Family history of alcoholism Confirmed Active Family history of alcoholism Confirmed Active Family History of Arthritis (sistes) Confirmed Active Family history of dementia Confirmed Active Family History of Diabetes Mellitus (dad) Confirmed Active Family history of hypertension (sister) Confirmed Active Fatty infiltration of liver Confirmed Active Fibromyalgia Confirmed 02/10/20 Active GERD (gastroesophageal reflux disease) Confirmed Active H/O nasal polyp Confirmed Active Herpes labialis Confirmed Active Chronic hip pain, bilateral Confirmed Active Hypercholesterolemia Confirmed Active Hyperglycemia Confirmed Active Hypertension Confirmed Active Strain of left groin Confirmed Active Insomnia Confirmed Active Low back pain Confirmed Active Lumbar spondylosis Confirmed Active Microscopic Hematuria Confirmed Active Mild major depression, single episode Confirmed Active Obese class I Confirmed Active Obesity Confirmed Active Osteoarthritis of both hips Confirmed 02/09/22 Active Osteoarthritis of cervical spine Confirmed Active Primary osteoarthritis, left shoulder Confirmed 08/09/22 Active Knee osteoarthritis Confirmed 05/22/21 Active Osteoarthritis of thoracic spine Confirmed Active Osteopenia Confirmed 05/31/23 Active Plaque psoriasis Confirmed Active Colonic polyp Confirmed 04/25/18 Active Restless legs Confirmed 06/08/13 Active Urinary bladder incontinence Confirmed Active Procedures Procedure Date Related Diagnosis Body Site Status Colonoscopy 01/07/25 Completed Social History Social History Type Response Smoking Status Former smoker; Type: Cigarettes; Other: quit 20 years ago; entered on: 08/26/15 Sex Sex Representation Female (finding) Note * Gladys Cagle RN: PERFORM Event Display: Discharge/Transfer Note Hospital Authored Date: Nursing Discharge Note Entered On: 01/07/2025 12:47 EDT Performed On: 01/07/2025 12:47 EDT by Gladys Cagle RN Nursing Discharge Note 2 Discharge Time : 01/07/2025 13:29 EDT Gladys Cagle RN - 01/07/2025 13:29 EDT Discharge Level of Care at Discharge : Home/Skilled Nursing/Foster Care Patient Left Unit Via : Wheelchair Patient Accompanied Off Unit with : Responsible adult DC Instructions Provided & Signed by Pt : Yes Patient Understands D/C Instructions : Yes Patient Instructions Discharge Signed : Yes Did Pt have Specialty Bed or Wound Vac : No Gladys Cagle RN - 01/07/2025 12:47 EDT * Gladys Cagle RN: PERFORM Event Display: Patient Education/Instruction Authored Date: [id number] Surgery Adult Discharge Instructions [address] [address] Name: AMILCAR OGDEN : 1955?? Visit: 01/07/2025 09:40?? Current Date: 01/07/2025 12:47 ?? Account: [id number]?? Surgery Discharge Instructions We would like to thank you for allowing us to assist you with your healthcare needs. The following includes patient education materials and information regarding your injury/illness. Our entire staffstrives to provide an excellent experience for our patients and their families. PLEASE ENSURE YOU FOLLOW-UP PER THE INSTRUCTIONS BELOW! ?? YOUR OPINION IS IMPORTANT TO US! Please complete the survey you may receive by mail or email. Your feedback will be used to make improvements to the healthcare experiences of our patients and their families. Surveys are administered by [employer] ?? If further treatment with your primary care physician or another doctor is recommended, it is important for you to keep the appointment. Call your primary care physician or return to the Emergency Department immediately if your condition worsens, fails to improve, or new symptoms develop. If you need to find a doctor, you can call [facility] Link for a referral at [phone] or toll free at [phone] or log in to [email or web address].. ?? [facility], in keeping with [facility] guidance, no longer requires face masks for staff, patientsor visitors in most situations. Similiar to time spent indoors at other locations, there is the chance that you were exposed to repiratory viruses during your time with us (such as flu or COVID-19). If you develop symptoms concerning for a viral respiratory infection, please seek testing (and treatment if indicated) from your medical provider or home test kit. ?? You can view and manage your care through the patient portal or by using a health care rupa of your choosing. [employer] is a website that allows you to securely view your medical information including your hospital discharge summary, office visit summaries, medications and follow-up visits. You can also request appointments, renew medications, and request access to your medical information using a health care rupa of your choosing, or just ask a question. You are entitled to know the individuals who participated in your treatment. This information is available within your medical record and will be provided upon your request. You can enroll at [email or web address] or register d uring your next office visit. You have been discharged from [facility], Patient Care Unit: ENDO??. If you have any questions regarding these instructions after you leave, please call us and we will be happy to assist you. [facility] Your Care Team Attending Physician Edita MENDOSA, Carline?? Reason for Admission 5 YR REPEAT HX TUBULAR ADENOMA Primary Care Provider Mitchell Carrera MD? Advance Directive Health Care Proxy on File Yes - Health Care Proxy What to do next Instructions From Your Doctor ?? Orders?? Scheduled Follow-Up Appointments Saturday 11:20 AM EDT ?? With: Mitchell Carrera MD Where: [facility] [address] [place] [id number]- Status: Pending Saturday 8:30 AM EDT ?? Where: [facility] OR Status: Pending You Need to Schedule the Following Appointments Follow Up with??Mitchell Carrera MD Where: ?? Discharge Medications AMILCAR OGDEN :1955 Visit Date:01/07/2025 Medications: Please continue your medications until treatment is completed or stopped by your provider. You may resume your daily prescription medications. Discuss any questions related to medications with your provider. What How Much When Why Instructions Next Dose Unchanged Acetaminophen (Tylenol 8 HR Arthritis Pain 650 mg oral tablet, extended release) 1 tab(s) Oral Every 8 hours as needed for as needed for fever Duration: 30 Days Unchanged Albuterol (Ventolin HFA 108 mcg/ inh inhalation aerosol with adapter) 2 puff(s) Inhalation Every 4 hours as needed for for wheezing Asthma Unchanged Alclometasone Topical (alclometasone 0.05% topical ointment) APPLY TO FACE/ EARS TWICE A DAY NEEDED FOR FLARES ?? Unchanged Atorvastatin (atorvastatin 10 mg oral tablet) 1 tab(s) Oral Daily at Bedtime Hypercholesterolemia Duration: 90 Days Unchanged Budesonide-Formoterol (budesonide-formoterol 160 mcg-4.5 mcg/ inh inhalation aerosol withadapter) See instructions INHALE 2 PUFFS BY MOUTH 2 TIMES A DAY (MORNING + EVENING). RINSE MOUTH AND THROAT AFTER USE ?? Unchanged Calcium And Vitamin D Combination (Caltrate 600 with D 600 mg-400 intl units oral tablet) 1 tab(s) Oral Daily Duration: 30 Days Unchanged Chlorthalidone (chlorthalidone 25 mg oral tablet) 1 tab(s) Oral Daily Duration: 30 Days Unchanged Durable Medical Equipment (Cane) See instructions use daily for ambulation. Dx: M17.12 ?? 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 Unchanged Famotidine (famotidine 40 mg oral tablet) 1 tab(s) Oral Daily at Bedtime Unchanged Fluticasone Nasal (Flonase 50 mcg/ inh nasal spray) 2 spray(s) Nares, Both Daily Duration: 30 Days Unchanged Fluticasone Nasal (fluticasone 27.5 mcg/ inh nasal spray) 2 spray(s) Nares, Both Daily as needed for as needed for allergy symptoms Duration: 30 Days Unchanged guselkumab (Tremfya One-Press 100 mg/ mL subcutaneous solution) EVERY 4 WEEKS ?? Unchanged Miscellaneous Rx (Adult Pull up briefs (large)) See instructions use TID for urinary incontinence. ??Dx: R32. ?? Unchanged Miscellaneous Rx (Adult wipes 48 count per pack) See instructions use TID for urinary incontinence. ??Dx: R32. ?? Unchanged Miscellaneous Rx (Overnight incontinence pads (maximum absorbency)) See instructions use every night for urinary incontinence. ??Dx: R32. ?? Unchanged Multivitamin (multivitamin Vitamin B Complex oral capsule) 1 capsule Oral Daily Duration: 30 Days Unchanged NIFEdipine (NIFEdipine (Eqv-Adalat CC) 30 mg oral tablet, extended release) 1 tab(s) Oral Daily Duration: 90 Days Unchanged Pantoprazole (pantoprazole 40 mg oral delayed release tablet) 1 tab(s) Oral Daily Duration: 90 Days Unchanged PEG Electrolyte Solution (PEG-3350 with Electrolytes (Eqv-GoLYTELY) oral powder for reconstitution) See instructions per GI office ?? Unchanged Quetiapine (SEROquel 100 mg oral tablet) 1.5 TABLETS Oral Daily Duration: 90 Days Unchanged Spironolactone (spironolactone 25 mg oral tablet) 1 tab(s) Oral Daily Duration: 90 Days Unchanged Tolterodine (tolterodine 4 mg oral capsule, extended release) 1 capsule Oral Daily Duration: 90 Days Unchanged Trazodone (traZODone 50 mg oral tablet) 1 tab(s) Oral Daily at Bedtime Duration: 30 Days Unchanged Venlafaxine (venlafaxine 75 mg oral capsule, extended release) 1 capsule Oral Daily Allergies (NKA means No Known Allergies) Bactrim??(rash) Latex??(rash) Education Materials Below is the list of Educational Leaflet Providered with your Discharge Instructions. [employer] Patient Education - Hemorrhoids Discharge Instructions?? [employer] Patient Education - Colon Polypectomy Discharge Instructions?? [employer] Patient Education - Surgery Medical Daystay Surgical Overnight Discharge Instructions?? Valuables and Belongings I fully understand and agree that [facility] accepts no responsibility for all my personal property including clothing, toilet articles, radios, jewelry, dentures, hearing aids, rings, money, or any other property that is in my possession or is brought to me after admission. I understand certain valuables may be placed in a hospital safe for a short period of time. I understand that the hospital is not liable for loss or damage due to accident, fire, or other natural occurrence while said property is in the safe. I accept full responsibility for any personal property that I keep with me, and will not hold the hospital responsible in case of loss or disappearance. I acknowledge that i have been encouraged to send valuables and belongings home. ?? Review of Valuable and Belonging List: With patient Date for Pt to Sign Valuables/Belongings: 01/07/25 10:17:00 ?? Valuables & Belongings ?? Clothes Electronic devices Jewelry Monetary Items Personal devices Miscellaneous Medications (Valuables) Valuables at Bedside Jacket, Pants, Shirt, Shoes, Undergarments ? Valuables Sent Home ? Valuables Sent to Security ? Valuables Sent to Locker ? Other Discharge Information ? Case Management Discharge Plan?? Discharge Plan?? Discharge Level of Care at Discharge: Home/Skilled Nursing/Foster Care ?? Pulmonary Rehab Status?? Pulmonary Rehab Discharge Status?? Respiratory Rate: 19 br/min ? Common Emergency Awareness Tips IS IT A STROKE? Act FAST and Check for these signs: FACE Does the face look uneven? ARM Does one arm drift down? SPEECH Does their speech sound strange? TIME Call at any sign of stroke ?? Heart Attack Signs Chest discomfort: Most heart attacks involve discomfort in the center of the chest and lasts more than a few minutes, or goes away and comes back. It can feel like uncomfortable pressure, squeezing, fullness or pain. Discomfort in upper body: Symptoms can include pain or discomfort in one or both arms, back, neck, jaw or stomach. Shortness of breath: With or without discomfort. Other signs: Breaking out in a cold sweat, nausea, or lightheaded. Remember, MINUTES DO MATTER. If you experience any of these heart attack warning signs, call to get immediate medical attention! ?? Smoking can increase your chances of developing chronic health problems and can cause harmful effects to other family members in your house. If you smoke, you are strongly encouraged to quit. Please call [facility] [employer] Link at [phone] or [phone]) or log in to [email or web address] for referrals to smoking cessation programs. ?? The National Suicide Prevention Hotline is available 28/01 if you or someone you know needs to find a reason to keep living. By calling 1-375-797-cookdinner (0371) you'll be connected to a skilled, trained counselor at a crisis center in your area. SURGERY DISCHARGE INSTRUCTIONS SIGNATURE PAGE AMILCAR OGDEN Location:[facility] Registration Date and Time:01/07/2025 09:40 EDT Primary Care Physician: Deandre MENDOSA, Mitchell, Attending Physician: Edita MENDOSA, Carline, I AMILCAR OGDEN, have received the above patient education materials/instructions and have verbalized understanding. If ambulance or transport services are being used I further acknowledge being given a choice of service. ?? If you need to contact me, please call me at this number: . 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 672 ??Hemorrhoids Discharge Instructions ??You must carefully read the Consumer Information Use and Disclaimer below in order to understand and correctly use this information?? About this topic Hemorrhoids are swollen veins in the rectum. Your rectum is where stool leaves your body. You may be able to see or feel your hemorrhoids outside of your body, but some hemorrhoids are inside of yourrectum and cannot be seen. Hemorrhoids can cause itching, pain, and bleeding. Being constipated or having hard stools can make your hemorrhoids worse.?? What care is needed at home? Ask your doctor what you need to do when you go home. Make sure??you ask questions if you do not understand what the doctor says. This??way you will know what you need to do. ??? Soak your bottomin a few inches of warm water for 10 to 15 minutes??at a time. You can do this 2 to 3 times each day. Do not add soap,??bubble bath, or anything to the water. ??? Use unma-vfx-pjyzgiu medicines to treat your hemorrhoids. These??include ointments and creams to help with pain and swelling. You can??also use a product like witch jackie to help dry out the skin in the area. ??? To help with constipation: ??? Use stool softeners when needed. ??? Eat high-fiber foods. These include whole grains, fruits, and??vegetables. ??? Drink plenty of water and other fluids each day. This helps to??keep your stools soft. ??? Set a regular schedule to try and have a bowel movement. Do??not ignore the urge to go to the bathroom. Don???t hold it in. ??? Give yourself plenty of time to have a bowel movement, but do not linger on the toilet either, by sitting and reading for a long time. ??? Do mild exercise each day like taking a walk. ??? Avoid heavy lifting or straining while the hemorrhoid is healing. ?? What follow-up care is needed? If your problem does not get better, other care may be needed. Your doctor may ask you to make visits to the office to check on your progress. Be sure to keep these visits.?? What drugs may be needed? The doctor may order drugs to: ??? Help with pain and swelling ??? Ease itching ??? Soften stools ?? Will physical activity be limited? Working out can help with digestion. It might help keep you from having hard stools. Ask your doctor about the best kind of exercise for you. ?? What problems could happen? You may have very bad bleeding. ??? Sometimes, treatments do not work. Some hemorrhoids are very??large. You might need surgery for either of these. ?? When do I need to call the doctor? You have a lot of bleeding from your rectum. ??? Your bowel movement looks like tar. ??? You are not able to pass stool because of pain from your??hemorrhoids. ??? Your pain gets worse and is nothelped by iycv-wgs-slpbtag??medicines, warm water, or your home care. ??? You have a fever of 100.4??F (38??C) or higher. ?? Teach Back: Helping You Understand The Teach Back Method helps you understand the information we are giving you. After you talk with the staff, tell them in your own words what you learned. This helps to make sure the staff has described each thing clearly. It also helps to explain things that may have been confusing. Before going home, make sure you can do these: ??? I can tell you about my condition. ??? I can tell you what may help ease my pain. ??? I can tell you what I will do if I have blood in my rectum. Where can I learn more?[place] [employer]https://familydoctor.or g/condition/hemorrhoids/National Digestive Disease Information Clearinghousehttps://www.niddk.nih.go v/health-information/digestive-diseases/hemorrhoids/definition-factsLast Reviewed Roap8975-66-67Vflebccl Information Use and Disclaimer:This generalized information is a limited summary of diagnosis,treatment, and/or medication information. It is not meant to be comprehensive and should be used asa tool to help the user understand and/or assess potential diagnostic and treatment options. It does NOT include all information about conditions, treatments, medications, side effects, or risks thatmay apply to a specific patient. It is not intended to be medical advice or a substitute for the medical advice, diagnosis, or treatment of a health care provider based on the health care provider's examination and assessment of a patient???s specific and unique circumstances. Patients must speak with a health care provider for complete information about their health, medical questions, and treatment options, including any risks or benefits regarding use of medications. This information does not endorse any treatments or medications as safe, effective, or approved for treating a specific patient. UpToDate, Inc. and its affiliates disclaim any warranty or liability relating to this information or the use thereof. The use of this information is governed by the Terms of Use, available at??htt ps://www.Gutenbergz.Inform Direct/en/know/vmflgjxl-qjpvuwhhuwgdj-echnyJtqf Updated 08/30/21? * Gladys Cagle RN: PERFORM Event Display: Patient Education Leaflets Authored Date: [id number] Colon Polypectomy Discharge Instructions ?? 682 ?? Colon Polypectomy Discharge Instructions ??You must carefully read the Consumer Information Use and Disclaimer below in order to understand and correctly use this information??About this topicThe colon is also called the large intestine. It is a long, hollow tube at the end of your digestive tract. It absorbs water from solid waste and changes it from liquid to a solid bowel movement.??A colon polyp is a growth of extra tissue that is not normally in your colon. Colon polyps do not often cause any signs. Most colon polyps are not cancer, but some polyps may turn into cancer. The doctor takes the polyps out during a procedure called a colonoscopy and sends them to the lab for a check to make sure there is no cancer.??You may have a colon polyp or multiple polyps removed. The doctor will send them to the lab to see what type they are. If a polyp is very large, it may need to be removed by surgery.??What care is needed at home? Ask your doctor what you need to do when you go home. Make sure??you ask questions if you do not understand what the doctor says. ??? Do not drive for 24 hours after a colonoscopy. ??? Take your drugs as ordered by your doctor. ??? Go back to your normaldiet unless your doctor has told you to make? some changes in your diet. ??? Rest ??What follow-up care is needed? Your doctor may ask you to make visits to the office to check on your??progress. Be sure to keep these visits. ??? Your doctor may suggest you get tested regularly. People with colon??polyps need to have a colonoscopy regularly to check for the growth??of new polyps. ??? Some polyps may not be removed, and more surgery may be needed. ??? The results of the polyp testing will be given to you at one of these??visits. ??What drugs may be needed?The doctor may order drugs to: ??? Prevent hard stools ??? Help with pain ??? Reduce your risk of colon polyps or colon cancer ??Will physical activity be limited?You may feel sleepy after the colonoscopy. Try to get some rest.??What can be done to prevent this health problem? Have regular colonoscopies.? Eat foods high in fiber. ??? Eat foods low in fat. ??? Limit your intake of beer, wine, and mixed drinks (alcohol). ??? Ask your doctor or dietitian for a diet that is right for you. Include??calcium in your diet. Good sources of calcium include milk, cheese,??and yogurt. ??When do I need to call the doctor? Signs of infection. These include a fever of 100.4??F (38??C) or higher,??chills, and anal itching or pain. ??? Bleeding from rectum that gets worse? Belly becomes swollen and sore ??? Upset stomach and throwing up continues after you return home ??? Not being able to move your bowels ??? Weight loss without trying ??? Blood in your stool ??Teach Back: Helping You UnderstandThe Teach Back Method helps you understand the information we are giving you. After you talk with the staff, tell them in your own words what you learned. This helps to make sure the staff has described each thing clearly. It also helps to explain things that mayhave been confusing. Before going home, make sure you can do these:? I can tell you about my co ndition. ??? I can tell you what changes I need to make with my diet. ??? I can tell you what I will do if my stomach is swollen, I have belly pain,??or there is blood in my stool. ??Where can I learn more?BetterHealthhttps://www.betterhealth.[place].gov.au/health/ConditionsAndTreatme nts/colonoscopyNHSh ttps://www.nhs.uk/conditions/bowel-polyps/UpToDatehttps://www.iMPath Networks/lele nts/gfgqh-vjngub-gewycl-the-basics??Last Reviewed Wmwe5332-25-85Utnronse Information Use and Disclaimer:This generalized information is a limited summary of diagnosis, treatment, and/or medication information. It is notmeant to be comprehensive and should be used as a tool to help the user understand and/or assess potential diagnostic and treatment options. It does NOT include all information about conditions, treatments, medications, side effects, or risks that may apply to a specific patient. It is not intendedto be medical advice or a substitute for the medical advice, diagnosis, or treatment of a health care provider based on the health care provider's examination and assessment of a patient???s specificand unique circumstances. Patients must speak with a health care provider for complete information about their health, medical questions, and treatment options, including any risks or benefits regarding use of medications. This information does not endorse any treatments or medications as safe, effective, or approved for treating a specific patient. WorkMeIn and its affiliates disclaim any warranty or liability relating to this information or the use thereof. The use of this information is governed by the Terms of Use, available at??https://www.Gutenbergz.Inform Direct/en/know/clinical-effectiveness- termsLast Updated 08/30/21? * Galdys Cagle RN: PERFORM Event Display: Patient Education Leaflets Authored Date: [id number] Surgery Medical Daystay Surgical Overnight Discharge Instructions ?? 295 Medical Daystay/Surgical Overnight Discharge Instructions ? Since your coordination and judgment may be altered by medication and/or anesthesia, a responsible adult must drive you home from the hospital. ? If you have received medication for pain or sedation while under our care, you should not drive, operate machinery, drink alcohol, or sign any legal documents for 24 hours.?? You should have someone with you at home tonight. ? Remain at home the day of discharge.?? You may be up and about unless otherwise instructed by your physician. ? You may resume your daily prescription medication schedule.?? Any depressant medication should be avoided for 24 hours unless otherwise instructed by your surgeon or anesthesiologist. ? Call your physician for a follow-up appointment.? If you experience unusual or severe pain not relied by your pain medication, excessive bleedingor drainage, persistent nausea and vomiting, excessive swelling or redness, foul odor from incisionsite or fever over 100.6F, you need to call your physician. ? A follow-up phone call by a nurse will be made the day after your procedure.?? If you have stayed with us over night, you will not be receiving a follow-up phone call. ? Nausea and vomiting are a common side effect of prescription pain medication.?? We recommend that pills are not taken on an empty stomach.?? While taking any prescription pain medication you should not drive or drink alcohol. ? Patient Care team information Care Team Personnel Name: Bro Cummings RN Position: [facility] RN Member Role: Primary Care Nurse Name: Mitchell Carrera MD Position: [facility] Physician - Primary Care Member Role: PCP Address: [address] [place] [address] Adult & Pediatric Medicine [address] Telecom: Name: Sravanthi De Paz RN Position: S RN Member Role: Primary Care Nurse Care Team Related Persons Name: PHAN SOMMER Name: MELISSA SINCLAIR Insurance Providers Guarantor name: AMILCAR OGDEN Preventsys Plan Information #: 1 Payer: [facility] [employer] Payer Identifier: NA Member Number: [id number] Group Number: [id number] Subscriber Identifier: [id number] Relationship to Subscriber: self Coverage Type: Medicare Managed Care (Includes Medicare Advantage Plans) Coverage Verification Date: NA Telecom: NA Address: NA
--- NOTE | ~2025-01-11 | FL_ITS ---
EXAMINATION: XR BARIUM SWALLOW CLINICAL INFORMATION: Gastroesophageal reflux disease without esophagitis COMPARISON: None available. TECHNIQUE: Routine barium swallow was performed with thick barium and barium coated saltine crackers and upright view and thin barium in prone lying position. FINDINGS: Following oral administration of thick barium there is normal propagation of bolus from the oral cavity through the pharynx, esophagus into stomach without obstruction, narrowing or stricture. No laryngeal penetration or aspiration seen. On oral administration of barium coated saltine crackers as solid food there is normal propagation of bolus from the oral cavity, pharynx, esophagus into stomach. No obstruction seen. On oral administration of thin barium in prone lying position there is good distention of the entire esophagus without intraluminal obstruction or narrowing or extrinsic compression. There is no gastroesophageal reflux or hiatal hernia in supine or decubitus views.. Incidental finding of left humeral total shoulder prosthesis is noted. FLUOROSCOPY TIME: 2 minutes. DOSE AREA PRODUCT: 1874 uGy-m2 (microgray-meter squared) FL/FL barium swallow IMPRESSION: Unremarkable barium swallow exam. Electronically signed by: mEmanuel Jiménez MD 01/11/2025 08:53 AM EDT
--- OUTSIDE RECORDS SUMMARY | 2025-01-11 07:49 | XMS_ITS | Clinical Summary ---
Author Organization [address] [facility] Address [address] [place] [address] Phone Care Team Providers Care Loom Winder Tender Name Role Phone Mitchell Carrera MD Primary Care Provider [phone] Allergies Active Allergy Reactions Criticality Noted Date Comments Latex 07/11/2021 Other 07/11/2021 Bactrim [Na Enakgpha-xmgxawdqxsyshgyr-dwlciynrfhk m] Medications busPIRone (BUSPAR) 5 mg tablet [...] Upcoming Encounters Date Type Department Care Team ([facility] st Contact Info) Description 02/23/2025 2:30 PM EDT Office Visit Bariatric Surgery - [place] [address] [facility] [address] [place] [address] Mónica Mace MD [address] [facility] [address] [place] [address] Health Maintenance Due Date Last Done Comments [...] 06/05/2022 Social Influencers of Health Screening 06/05/2022 Hypertension/CHF/CAD Annual BMP Blood Test 05/12/2024 COVID-19 Vaccine ( season) 2024 04/02/2024, 07/21/2021, 12/08/2020, Additional history exists Influenza Vaccine (#1) 2025 , 05/09/2021, 04/16/2019, Additional history exists DTaP,Tdap,and Td Vaccines (4 - Td or Tdap) 01/10/2032 01/09/2022, 05/15/2012, 06/25/2007 Zoster Vaccines Completed 07/21/2021, 01/02/2021 Pneumococcal Vaccine: 50+ Years Completed 08/06/2022 RSV Immunization Adult Patients Completed 04/02/2024 HIB Vaccines Aged Out No [...] age to complete this topic Meningococcal B Vaccine Aged Out No l onger eligible based on patient's age to complete [...] ID:[id number] Group ID:[id number] Type:Not on file Address: [address] [place] [address] Care Teams Loom Winder Tender Relationship Specialty Start Date End Date Mitchell Carrera MD [address] [place] [address] PCP - General Internal Medicine 03/17/21
--- OUTSIDE RECORDS SUMMARY | 2025-01-11 07:50 | XMS_ITS | Patient Health Record ---
Author Organization [facility] [address] Address [address] [place] [address] Care Team Providers Care Brush Holder Inspector Name Role Phone RICCARDO PHILLIPS Unavailable [phone] Allergies Allergen (clinical drug ingredient) Drug/Non Drug Allergy documented on EMR Reaction Allergy Type Onset Date Status sulfamethoxazole / trimethoprim Bactrim rash Drug Allergy Active Latex Latex rash Allergy Active Reason For Referral No Information Medications Medication SIG (Take, Route, Frequency, Duration) Notes Start Date End Date Status Budesonide-Formoterol Fumarate 160-4.5 MCG/ACT INHALE 2 PUFFS BY MOUTH TWICE DAILY. RINSE MOUTH AND THROAT AFTER USE Inhalation; Duration: 30 Active Fluocinonide 0.05 % APPLY TO LEGS TWICE A DAY NEEDED FOR FLARES External; Duration: 30 Active busPIRone HCl 5 MG TAKE 1 TABLET BY JOSE ROBERTO TH TWICE A DAY FOR ANXIETY Oral; Duration: 30 Active Ozempic (2 MG/DOSE) 8 MG/3ML inject 2mg Subcutaneous once a week; Duration: 30 days Active aMILoride HCl 5 MG TAKE 1 TABLET BY JOSE ROBERTO TH EVERY DAY Oral; Duration: 90 Active NIFEdipine ER 30 MG TAKE 1 TABLET BY JOSE ROBERTO TH EVERY DAY Oral; Duration: 90 Active Atorvastatin Calcium 10 MG TAKE 1 TABLET BY MOUTH EVERYDAY AT BEDTIME Oral; Duration: 90 Active Pantoprazole Sodium 40 MG TAKE 1 TABLET BY MOUTH EVERY DAY Oral; Duration: 90 Active Social History Tobacco Use: Social History Observation Description Date Details (start date - stop date) Never Smoker NA - NA Tobacco Use/Smoking Question Answer Notes Are you a nonsmoker Alcohol Screen (Audit-C) Question Answer Notes Did you have a drink contain ing alcohol in the past year? Yes How often did you have a dri nk containing alcohol in the past year? Monthly or less (1 point) Points 1 Interpretation Negative Problems Problem Type SNOMED Code ICD Code Onset Dates Problem Status W/U Status Risk Notes Problem Essential hypertension (34956805) Essential (primary) hypertension (I10) Active confirmed Problem Obese class I (finding) (090938845497815) Obesity (BMI 30.0-34.9) (E66.9) Active confirmed Problem Gastroesophageal reflux disease without esophagitis (623511293) Gastroesophageal reflux disease without esophagitis (K21.9) Active confirmed Problem Mild major depression, single episode (30484921) Current mild episode of major depressive disorder without prior episode (F32.0) Active confirmed Problem BMI 30+ - obesity (140016067) BMI 32.0-32.9,adult (Z68.32) Active confirmed Problem Diabetes mellitus screening (574748286) Screening for diabetes mellitus (Z13.1) Active confirmed Problem Body mass index 30+ - obesity (727929634) BMI 30.0-30.9,adult (Z68.30) Active confirmed Problem Chronic obstructive asthma co-occurrent with acute exacerbation of asthma (disorder) (24036628853620144) Chronic obstructive asthma (J44.9) Active confirmed Problem Cholesterol screening (135358690) Screening cholesterol level (Z13.220) Active confirmed Plan Of Treatment Pending Test Test Name Order Date CBC (COMPLETE BLOOD COUNT) 11/15/2022 COMPREHENSIVE METABOLIC PANEL 11/15/2022 LIPID PANEL 11/15/2022 Insurance Providers Payer Name Payer Address Payer Phone Subscriber Number Group Number Insured Name Patient Relationship to Insured Coverage Start Date Coverage End Date [employer] or Options [address] [place] [address] [phone] [id number] Katherine Eckert Self - patient is the insured Medical (General) History Medical History History ICD Code hypertension hyperlipidemia asthma Arthritis anxiety depression Surgical History Surgery Date(Month/Year) left knee replacement right shoulder replacement 10/18/22 Hospitalization History Reason Date(Month/Year) asthma
== END 2025-01-11 07:48 | disposition home or self-care (01) ==
LOC: HO.XRAY 07:47
PROVIDERS: PCP Internal Medicine; Visit Provider Hospitalist
DX: K21.9 Gastro-esophageal reflux disease without esophagitis (principal)
CPT/HCPCS: 74220

== ENCOUNTER → 2025-01-11 07:48 | Outpatient (BNV) | payer OTHER, SELFPAY | PROVIDERS: PCP Internal Medicine; Visit Provider Radiology Diagnostic Radiology | DX: K21.9 Gastro-esophageal reflux disease without esophagitis (principal) | CPT/HCPCS: 74240 ==

== ENCOUNTER 2025-03-01 13:44 | Outpatient (AMB) | payer OTHER, SELFPAY ==
--- NOTE | 2025-03-01 13:46 | MHC.OFFVIS ---
Vital Signs 03/01/25 13:48 Height 5 ft 2.5 in Weight 192 lb 14.472 oz BMI 34.7 BP 120/72 Blood Pressure Location Lt brachial Position Sitting Pulse 82 Pulse Source Pulse Oximeter Pulse Oximetry (%) 95 Oxygen Delivery Method Room Air Intake Visit Reasons: RKR - NEOS - 03/10 Merchandise Presentation Manager Required: No Accompanied by: Self / Same As Patient Allergies Latex, Natural Rubber (LATEX, NATURAL RUBBER) Allergy (Unknown, Verified 03/01/25 13:51) RASH sulfamethoxazole (From BACTRIM) Allergy (Unknown, Verified 03/01/25 13:51) RASH trimethoprim (From BACTRIM) Allergy (Unknown, Verified 03/01/25 13:51) RASH HPI Comments Details: The patient is a 69 year woman with known history of asthma. She has had asthma and she has a child in his symptoms improve. Now for the last few years been having worsening respiratory symptoms such as tightness. She has had admissions at [facility] for asthma exacerbations. Although has not had any admissions for the last 3 years. The patient has been taking Symbicort. She feels she has does significant chest tightness and shortness of breath. She uses a rescue inhaler on a regular basis. She has had allergy testing in the past. And she was also diagnosed with nasal polyps. She was not offered allergy shots and she did go to ENT doctor. She did have surgery for her nose. The last time she was evaluated they did not see any nasal polyps which is reassuring. The patient also suffers from significant reflux disease. Sometimes she does wake up with significant heartburn and coughing because of reflux. She does take Protonix. Although she continues to be symptomatic. The patient does not use aspirin at this time. She does have chest tightness on examination wheezing. Will go ahead and optimize respiratory therapy. Will go ahead and request PFTs and a chest x-ray and have her come in. She is already on lot of medications. So therefore we have to be careful not to add to her polypharmacy. 09/07/2024 the patient is here for a pulmonary follow-up visit. Overall doing fairly well. Still having episodes of cough. And also feel like chest tightness middle the chest. She did start the Spiriva although she does not use it regularly and she is using the Symbicort. The patient continues to have significant reflux disease. Sometimes she does wake up with significant heartburn and coughing. Explained to the patient this is likely contributing to her cough and to a component of likely tracheomalacia. Therefore again we talked about the reflux diet. She is responding to the Pepcid at night along with the Protonix in the morning. Because of her ongoing symptoms will go ahead and request a barium swallow in addition to that the patient did have pulmonary function studies which we personally reviewed. No evidence of any obstruction although she did have a mild restriction. Diffusing capacity is normal. Will go ahead and request a chest x-ray to address the restriction. If the chest x-ray is nondiagnostic if the patient continues to be symptomatic a CT scan of chest may be warranted in the near future. She is scheduled to undergo a knee replacement sometime in March. Will plan to see her prior to that just to follow-up with all the results. the patient is here for preoperative evaluation. She is scheduled to undergo total knee replacement. She has been using her Symbicort and Spiriva with good effect. Although recently she started developing some reflux issues and she has some heartburn resulting in cough and some chest tightness. Subsequently improved. Then she had surgery and afterwards she did have some issues with bronchospasms needing respiratory therapy. Her respiratory exam is okay right now although she does have some increased cough. She does take her inhalers as prescribed with good adherence. I do believe that preemptively because of her history of bronchospasms with anesthesia will be reasonable to give her 5 days' worth of low-dose prednisone and a mild antibiotic to try to improve her respiratory capacity just prior to surgery and therefore optimize her respiratory capacity while going surgery. The patient is also having some daytime drowsiness. Her [place] score is elevated 05/31. She should have a sleep study. At this point will wait after her knee surgery to undergo a home sleep study to get her on PAP therapy if warranted. The patient may be able to proceed with anesthesia and surgery at this time. [facility] Medical History (Updated 09/07/24 @ 21:22 by Albino Wolff MD) Chronic restrictive lung disease Nasal polyps Asthma Social History Patient Tobacco Use Status: Former Tobacco user Review of Systems Const Reports daytime sleepiness and Reports snoring Eyes Reports no additional complaints ENT Reports nasal congestion and Reports nasal discharge Card Denies chest pain Resp Reports cough, Reports snoring and Reports wheezing GI Reports dyspepsia and Reports heartburn Musc Reports as per HPI and Reports arthralgias Skin/Breast Denies rash Cosmo/Lymph Reports no additional complaints Aller/Immun Reports wheezing Physical Exam Vital Signs: Last Vital Signs Pulse 82 03/01/25 13:48 BP 120/72 03/01/25 13:48 Pulse Ox 95 03/01/25 13:48 Oxygen Delivery Method Room Air 03/01/25 13:48 BMI result Body Mass Index 34.7 Const General: comfortable HEENT Head: Yes normocephalic Neck Neck: Yes supple Chest Chest palpation & inspection: normal inspection of the chest Resp Effort & Inspection: normal respiratory effort Auscultation: wheezes and diminished lung sounds Cardio Heart sounds: S1 normal heart sound present and S2 normal heart sound present GI Palpation (GI): Soft to palpation Skin General skin exam: no rashes or lesions noted Extrem General: No clubbing, No cyanosis and Yes edema Assessment & Plan Assessment & Plan (1) Asthma: Comment: ? component of TBM Code(s): J45.909 - Unspecified asthma, uncomplicated Category: Medical Qualifiers: Asthma complication type: uncomplicated Asthma persistence: persistent Asthma severity: moderate Qualified Code(s): J45.40 - Moderate persistent asthma, uncomplicated (2) ASTRID (obstructive sleep apnea): Code(s): G47.33 - Obstructive sleep apnea (adult) (pediatric) Category: Medical (3) Nasal polyps: Code(s): J33.9 - Nasal polyp, unspecified Category: Medical (4) Chronic restrictive lung disease: Code(s): J98.4 - Other disorders of lung Category: Medical Plan continue Symbicort continue Spiriva JAY as needed start Prednisone 20mg x 5 days start Azithromycin x 5 days reflux diet PPI [id number] sleep elevated home PSG She is able to proceed with anesthsia and surgery from a pulmonary standpoint. She does have increased risk for bronchospasms and should use pre and post bronchodilator therapy. Would encourage using Ketamine during the anesthesia to provide bronchodilation. F/U 4 months Orders: Orders RT home sleep study Today G47.33 - Obstructive sleep apnea (adult) (pediatric) Medications: New prednisone 20 mg PO DAILY 5 tabs 0RF 5 days azithromycin 500 mg PO DAILY 5 tabs 0RF 5 days Coding Level of Care Code Est Pt Level 4 (99520) Complex EM visit Add On G2211 Diagnoses Moderate persistent asthma without complication J45.40 Asthma complication type: uncomplicated Asthma persistence: persistent Asthma severity: moderate ASTRID (obstructive sleep apnea) G47.33 Nasal polyps J33.9 Chronic restrictive lung disease J98.4 Time Spent (min) 17
[2025-03-01 13:48] VITALS: BP 120/72; PULSE 82; O2SAT 95; BMI 34.7
--- OUTSIDE RECORDS SUMMARY | 2025-03-01 15:03 | XMS_ITS | Clinical Summary ---
Author Organization [address] [facility] Address [address] [place] [address] Phone Care Team Providers Care Pie Crimping Machine Operator Name Role Phone Mitchell Carrera MD Primary Care Provider [phone] Allergies Active Allergy Reactions Criticality Noted Date Comments Latex 07/11/2021 Other 07/11/2021 Bactrim [Na Gvnmqmaq-qkygpgvkoyitfqcm-fahdxbxpqsh m] Medications busPIRone (BUSPAR) 5 mg tablet Take 5 mg by mouth 2 Times Daily. 2 Active calcium carbonate (CALCIUM ORAL) Calcium Carbonate-Vit [...] Take 4 mg by mouth daily. Active tirzepatide, weight loss, (Zepbound) 2.5 mg/0.5 mL injectionIndicat ions:Class 1 obesity due to excess calories with body mass index (BMI) of 34.0 to 34.9 in adult, unspecified whether serious comorbidity present Inject 0.5 mL (2.5 mg total) under the skin every 7 (seven) days for 4 doses. 2 mL 03/17/20 Active Active Problems Problem Noted Date Diagnosed Date Anxiety 02/23/2025 Chronic hip pain, bilateral 02/23/2025 Chronic sinusitis 02/23/2025 Constipation 02/23/2025 Herpes labialis 02/23/2025 GERD (gastroesophageal reflux disease) Fatty infiltration of liver 02/23/2025 Insomnia 02/23/2025 Low back pain 02/23/2025 Lumbar spondylosis 02/23/2025 Strain of left groin 02/23/2025 Mild major depression, single episode (CMS/HCC V 24) 02/23/2025 Hypercholesterolemia 02/01/2025 Hyperglycemia 02/01/2025 Hypertension 02/01/2025 Microscopic hematuria 02/01/2025 Urinary bladder incontinence 02/01/2025 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 Peroneal tendonitis of right lower extremity 05/2024 Asthma exacerbation 04/14/2024 Shoulder pain 10/30/2023 Dupuytren's disease of palm 10/10/2023 Osteopenia 05/31/2023 Primary osteoarthritis, left shoulder 08/09/2022 Osteoarthritis of both hips 02/09/2022 Knee osteoarthritis 05/22/2021 Fibromyalgia 02/10/2020 Colonic polyp 04/25/2018 Restless legs 06/08/2013 Encounters Date Type Department Care Team Description 02/26/2025 Telephone Bariatric Surgery [address] [address] Mónica Mace MD 02/23/2025 2:30 PM EDT Office Visit Bariatric Surgery [address] [address] Mónica Mace MD Class 1 obesity due to excess calories with body mass index (BMI) of 34.0 to 34.9 in adult, unspecified whether serious comorbidity present (Primary Dx) from Last 3 Months Social History Tobacco [...] Sign Reading Time Taken Comments Blood Pressure 113/68 02/23/2025 3:04 PM EDT Pulse 84 02/23/2025 3:04 PM EDT Temperature 36.6 C (97.8 F) 02/23/2025 3:04 PM EDT Respiratory Rate - - Oxygen Saturation - - Inhaled Oxygen Concentration - - Weight 87.5 kg (193 lb) 02/23/2025 3:04 PM EDT Height 160 cm (5' 3 ) 02/23/2025 3:04 PM EDT Body Mass Index 34.19 02/23/2025 3:04 PM EDT Plan of Treatment Upcoming Encounters Date Type Department Care Team (Late st Contact Info) Description 08/26/2025 2:45 PM EST Office Visit Bariatric Surgery - [place] [address] [phone] Mónica Mace MD [address] [address] Health Maintenance Due Date Last Done Comments Breast Cancer Screening 1955 Cholesterol Screening (Lipid Panel) 06/05/2022 Colorectal Cancer Screening: Colonoscopy 06/05/2022 Falls Risk Assessment 06/05/2022 Hepatitis C Screening 06/05/2022 Medicare Annual Wellness Visit 06/05/2022 Osteoporosis Screening (Bone Density Screening) 06/05/2022 Social Influencers of Health Screening 06/05/2022 Hypertension/CHF/CAD Annual BMP Blood Test 05/12/2024 Depression Screening 07/08/2024 COVID-19 Vaccine ( season) 2024 04/02/2024, 07/21/2021, [...] on patient's age to complete this topic Hepatitis A Vaccines Aged Out No long er eligible based on patient's age to complete this topic Hepatitis B Vaccines Aged Out No long er eligible based on patient's age to complete [...] patient's age to complete this topic Insurance [address] [id number] MEDICAID - [place] [employer] MEDICARE Member Subscriber Plan / Payer (Ef fective 2022-Present) Name:Katherine Ogden Relation to Subscriber:Self Name:Katherine Ogden Payer ID:[id number] Group ID:[id number] Type:Not on file Address: [address] [place] [address] Care Teams Pie Crimping Machine Operator Relationship Specialty Start Date End Date Mitchell Carrera MD [address] [place] [address] PCP - General Internal Medicine 03/17/21
--- OUTSIDE RECORDS SUMMARY | 2025-03-01 15:03 | XMS_ITS | Patient Health Record ---
Author Organization [facility] [address] Address [address] [place] [address] Care Team Providers Care Humanities Professor Name Role Phone RICCARDO PHILLIPS Unavailable [phone] Allergies Allergen (clinical drug ingredient) Drug/Non Drug [...] W/U Status Risk Notes Problem Essential hypertension (31335414) Essential (primary) hypertension (I10) Active confirmed Problem Obese class I (finding) (599147600047881) Obesity (BMI 30.0-34.9) (E66.9) Active confirmed Problem Gastroesophageal reflux disease without esophagitis (339806381) Gastroesophageal reflux disease without esophagitis (K21.9) Active confirmed Problem Mild major depression, single episode (38134711) Current mild episode of major depressive disorder without prior episode (F32.0) Active confirmed Problem BMI 30+ - obesity (525153236) BMI 32.0-32.9,adult (Z68.32) Active confirmed Problem Diabetes mellitus screening (514136068) Screening for diabetes mellitus (Z13.1) Active confirmed Problem Body mass index 30+ - obesity (502485798) BMI 30.0-30.9,adult (Z68.30) Active confirmed Problem Chronic obstructive asthma co-occurrent with acute exacerbation of asthma (disorder) (07710332104876372) Chronic obstructive asthma (J44.9) Active confirmed Problem Cholesterol screening (287631830) Screening cholesterol level (Z13.220) Active confirmed Plan Of Treatment Pending Test Test Name Order Date CBC (COMPLETE BLOOD COUNT) 11/15/2022 COMPREHENSIVE METABOLIC PANEL 11/15/2022 LIPID PANEL 11/15/2022 Insurance Providers Payer Name Payer Address Payer Phone Subscriber Number Group Number Insured Name Patient Relationship to Insured Coverage Start Date Coverage End Date [employer] or Options [address] [place] [id number] Katherine Eckert Self - patient is the insured Medical (General) History Medical History History ICD Code hypertension hyperlipidemia asthma Arthritis anxiety depression Surgical History Surgery Date(Month/Year) left knee replacement right shoulder replacement 10/18/22 Hospitalization History Reason Date(Month/Year) asthma
--- OUTSIDE RECORDS SUMMARY | 2025-03-01 15:03 | XMS_ITS | Encounter Summary ---
Author Organization [facility] Address [address] [place] [address] Care Team Providers Care Nurse Obgyn Name Role Phone Mitchell Carrera MD Primary Care Provider [phone] Encounter Details Date Type Department Care Team (Late Contact Info) Description 02/26/2025 Telephone Bariatric Surgery [facility] [address] [place] [phone] Mónica Mace MD 175 [facility] [address] [place] [address] Social History Tobacco Use Types Packs/Day Years Used Date Smoking Tobacco: Never Smokeless Tobacco: Never Alcohol Use Standard Drinks/Week Comments Yes 0 (1 standard drink = 0.6 oz pur e alcohol) Comments Unknown Sex and Gender Information Value Date Recorded Sex Assigned at Not on file Legal Sex Female 9:43 AM EST Gender Identity Not on file Sexual Orientation Not on file documented as of this encounter Progress Notes * Constantine Valdes [place] - 02/26/2025 2:[address] Mace I need her notes for a PA documented in this encounter Plan of Treatment Upcoming Encounters Date Type Department Care Team (Late Contact Info) Description 08/26/2025 2:45 PM EST Office Visit Bariatric Surgery [facility] [address] [phone] Mónica Mace MD [address] [address] documented as of this encounter Visit Diagnoses Not on filedocumented in this encounter Care Teams Nurse Obgyn Relationship Specialty Start Date End Date Mitchell Carrera MD [address] [place] [phone] PCP - General Internal Medicine 03/17/21 documented as of this encounter
== END 2025-03-01 14:14 | disposition home or self-care (01) ==
LOC: HO.HPS 13:44
PROVIDERS: PCP Internal Medicine; Visit Provider Hospitalist
DX: J45.40 Moderate persistent asthma, uncomplicated (principal); G47.33 Obstructive sleep apnea (adult) (pediatric); J33.9 Nasal polyp, unspecified; J98.4 Other disorders of lung
CPT/HCPCS: 99214; G2211

== ENCOUNTER → 2025-03-01 13:44 | Outpatient (BNVA) | payer OTHER, SELFPAY | PROVIDERS: PCP Internal Medicine; Visit Provider Hospitalist | DX: Z01.818 Encounter for other preprocedural examination (principal); J45.40 Moderate persistent asthma, uncomplicated; G47.33 Obstructive sleep apnea (adult) (pediatric); J98.4 Other disorders of lung; J33.9 Nasal polyp, unspecified; K21.9 Gastro-esophageal reflux disease without esophagitis | CPT/HCPCS: 99212 ==